=== PATIENT | female | born 2000 | race African-American/Black ===

== ENCOUNTER 2021-03-04 05:45 | Inpatient (IN) ==
[2021-03-04] MEDS ORDERED: ACETAMINOPHEN 500 MG TAB PO STA (05:59)
[2021-03-04] MEDS ORDERED: SODIUM CHLORIDE 0.9% 1000ML 1,000 ML IV STA (06:00)
[2021-03-04] MEDS ORDERED: ONDANSETRON INJ 2 MG/ML 2 ML VIAL IV STA (06:00)
[2021-03-04] MEDS ORDERED: cefTRIAXone SODIUM 1,000 MG/50 ML BAG IV STA (06:19)
[2021-03-04 06:45] LABS: Basophils # (auto) 0.01 K/uL (0-0.2); Basophils % (auto) 0.1 %; Eosinophils # (auto) 0.02 K/uL (0-0.5); Eosinophils % (auto) 0.2 %; Hematocrit (blood only) 28.4 % (37-47); Hemoglobin 9.1 g/dL (12.0-16.0); Immature Granulocytes # (auto) 0.06 K/uL (0.00-0.02); Immature Granulocytes % (auto) 0.5 %; Lymphocytes # (auto) 0.27 K/uL (1.2-3.4); Mean Corpuscular Hemoglobin 25.6 pg (25-34); Mean Platelet Volume 8.2 fL (7.4-10.4); Monocytes # (auto) 0.27 K/uL (0.11-0.59); Neutrophils # (auto) 12.64 K/uL (1.4-6.5); Neutrophils % (auto) 95.2 %; Platelet Count 512 K/uL (130-400); RDW Coefficient of Variation 16.8 % (11.5-14.5); RDW Standard Deviation 48.9 fL (36.4-46.3); Red Blood Count 3.55 M/uL (4.2-5.4); White Blood Count 13.27 K/uL (4.8-10.8)
[2021-03-04 07:03] LABS: BUN Creatinine Ratio 6.7 (10-20); Calcium 8.6 mg/dl (8.5-10.1); Creatinine Clr Calc Pharmacy 98.3 ml/min; Est GFR (African American) 133.9 ml/min; Est GFR (Non-African American) 115.6 ml/min; Potassium 3.1 mmol/L (3.5-5.1)
[2021-03-04 07:06] LABS: Albumin Globulin Ratio 0.7 (0.9-2); Bilirubin,Total 0.4 mg/dl (0.2-1); Globulin 4.5 gm/dl (2.5-4.0); Total Protein 7.5 gm/dl (6.4-8.2)
[2021-03-04 07:40] LABS: Appearance Urine Clear (Clear); Bacteria Urine Automated Negative (Negative); Bilirubin Urine Negative (Negative); Blood Urine Negative (Negative); Color Urine Yellow; Glucose Urine UA Negative (Negative); Ketones Urine Negative (Negative); Leukocyte Esterase Urine Trace (Negative); Nitrite Urine Negative (Negative); Protein Urine Negative (Negative); RBC Urine Automated 0-4 /hpf (0-4); Specific Gravity Urine 1.004 (1.000-1.030); Urobilinogen Urine Negative (Negative); pH Urine 7.5 (4.5-7.5)
[2021-03-04] MEDS: SODIUM CHLORIDE 0.9% 1000ML 1,000 ML IV SCH ×2 (07:40→13:33)
[2021-03-04 07:48] LABS: Pregnancy Test, Urine Negative (Negative)
[2021-03-04] MEDS ORDERED: OPTIRAY 320 100ml IV ONE (08:34)
--- NOTE | 2021-03-04 09:13 | CT Scan Report ---
CT SCAN OF THE ABDOMEN AND PELVIS WITH IV CONTRAST CLINICAL HISTORY: Urinary tract infection. Pyelonephritis. Flank pain. Dysuria. COMPARISON STUDY: No priors. TECHNIQUE: Following the IV administration of 94 cc of Optiray 320, CT scan of the abdomen and pelvi s is performed from the lung bases to the proximal femora. Images are reviewed in the axial, sagittal , and coronal planes. IV contrast was administered without complication. A dose lowering technique wa s utilized adhering to the principles of ALARA. There is streak artifact from a metallic naval pierci ng. CT DOSE: 266.52 mGy.cm FINDINGS: Lung bases: The heart is normal in size and without pericardial effusion. The lung bases are clear. Liver: The contrast-enhanced liver is normal in size, contour, and attenuation. There is no intrahepa tic biliary ductal dilatation. The hepatic veins and portal veins are patent. Gallbladder: Unremarkable. Spleen: Normal in size and attenuation. Pancreas: Unremarkable. Adrenal glands: Unremarkable. Kidneys: The contrast enhanced kidneys are normal in size and without hydronephrosis. Mild urothelial thickening and enhancement is seen involving the left ureter. There is a striated nephrogram on the left. The right kidney enhances homogeneously. There is a 13 mm indeterminant low-attenuation focus i n the anterior interpolar left kidney seen on image #127 with surrounding edema. Abdominal vasculature: The abdominal aorta is normal in course and caliber. Bowel: There is no bowel obstruction. Moderate fecal retention is seen throughout the colon. The appe ndix is well-visualized and normal. Peritoneum: There is no intraperitoneal free air or abdominal ascites. There is a small fat-containin g umbilical hernia. A naval piercing is in place. Lymphadenopathy: None. Pelvic viscera: The bladder is distended and appears mildly thick-walled. The uterus and adnexa are n ormal as visualized noting bilateral ovarian follicles. A small volume of free fluid is seen in the c ul-de-sac. Skeletal structures: No lytic or blastic lesions are seen. IMPRESSION: 1. Findings are compatible with cystitis and ascending urinary tract infection/polynephritis of the l eft kidney. 2. There is a 13 mm indeterminant cortical hypodensity with surrounding edema in the anterior interpo lar left kidney which does not meet criteria for a simple cyst. This likely represents a small absces s. 3. A small volume of free fluid in the cul-de-sac is nonspecific. ACT 112: Negative or not required by law. Electronically signed by: Abdiel Murphy M.D. 03/04/2021 9:12 AM
[2021-03-04] MEDS ORDERED: POTASSIUM CHLORIDE CRTAB 20 MEQ TABCR PO STA (10:46)
--- NOTE | 2021-03-04 10:46 | History & Physical Report ---
Date of Service March 04, 2021 Assessment & Plan (1) Pyelonephritis: Plan: This point patient will be continued on ceftriaxone 1 g IV every 12 hours Check procalcitonin in the morning Urinalysis with urinary tract infection. Urine culture is pending Records reviewed from [facility]. Urinalysis was positive. Urine culture with no growth. We will also treat with lactated Ringer's at 125 mL an hour Follow ins and outs Acetaminophen for fever and pain (2) Abscess of left kidney: Plan: Small at 1.3 cm. - Treat underlying pyelonephritis - Follow vital signs and electrolytes (3) Hypokalemia: Plan: Potassium chloride 40 mEq p.o. Check magnesium level Check repeat labs in the morning (4) DVT prophylaxis: Plan: Heparin 5000 units subcutaneously every 12 hours Ambulate as tolerated History of Present Illness Chief Complaint: Urinary tract infection/pyelonephritis Primary Care Provider: [facility] Attending: Dr. Gonzalo Stahl Is a 20-year-old female with no significant past medical history other than occasional urinary tract infection. She is on oral control and no other prescription medications. 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 She reports that recently she had a urinary tract infection was treated with Macrobid. Records were rev iewed from [facility] and show a positive urinalysis but no positive cultures. By report, the patient states that her physician called and wanted to change her antibiotics. The patient was feeling better and stated that she did not think it was necessary. She moved in and over the last 24 hours began to have increasing fever and some left-sided pain. She presented to the emergency department at [facility]. CT scan of the abdomen pelvis was completed and shows cystitis and ascending urinary tract infection polynephritis of the left kidney. Is noted there is a 13 mm indeterminate cortical hypodensity with surrounding edema in the anterior interpolar left kidney which may be criteria for simple cyst. It could also be a small abscess. There is also a small amount of free fluid in the cul-de-sac which is nonspecific. T-max in the emergency department 39.4 C. This came down nicely with Tylenol. At the time of my examination the patient has no further nausea or vomiting. She has no diarrhea. She has minimal pain on the left side. She does have positive CVA tenderness. The patient denies any other past medical history is significant. She did have bunion surgery on her left foot without complication in the past. She is on oral control. She has no other surgical history. She has no reported pregnancies. She has no other acute complaints. The patient has not had Covid. She reports being fully vaccinated with both vaccinations of Moderna. She denies any illicit use of alcohol or other substances. Allergies Allergy/AdvReac Type Severity Reaction Status Date / Time No Known Allergies Allergy Verified 03/04/21 10:13 Home Medications Medication Instructions Recorded Confirmed Type acetaminophen 500 mg tablet 1,000 mg PO Q8H PRN 04/23/20 03/04/21 History (Tylenol Extra Strength) drospirenone 3 mg-ethinyl 1 tab PO PM 03/04/21 03/04/21 History estradiol 0.02 mg tablet (KP (28)) ibuprofen 200 mg tablet (Motrin IB) 600 mg PO Q6H PRN 03/04/21 03/04/21 History iron,carbonyl 65 mg-vitamin C 125 1 tab PO PM 03/04/21 03/04/21 History mg tablet,delayed release (Vitron-C) Past Med/Surg History Medical History No acute medical problems Surgical History No pertinent past surgical history Social History Smoking Status: Never smoker Feels Safe at Home: Yes Review of Systems Review of Systems: All systems reviewed & are unremarkable except as noted in Subjective Physical Exam Physical Exam: GENERAL : No acute distress EYES: No icterus, gaze conjugate NOSE: No evidence of epistaxis MOUTH: No lesions or candidiasis NECK: Supple LUNGS: CTA B/L, no wheezes, rales or rhonchi BACK: Positive for left-sided CVA tenderness HEART: Regular, rate controlled ABDOMEN: Soft, NT, ND, BS Present EXTREMITIES: No LE edema, pedal pulses intact NEURO: A&OX3 Results & Data Results & Data ([facility]) Vital Signs (Past 12 Hours) Vital Signs Temp Pulse Resp BP Pulse Ox 03/04/21 10:00 98 H 20 107/69 98 03/04/21 09:30 108 H 26 H 100/64 99 03/04/21 09:04 111 H 25 H 99/60 L 100 03/04/21 08:30 107 H 22 122/70 99 03/04/21 08:26 37.1 C 03/04/21 08:00 112 H 20 106/71 99 03/04/21 07:30 126 H 32 H 119/79 100 03/04/21 07:00 115 H 27 H 113/66 99 03/04/21 06:38 120 H 20 120/78 100 03/04/21 06:33 100 03/04/21 05:52 39.4 C H 149 H 16 123/71 98 Laboratory Results 03/04/21 06:32 03/04/21 06:32 Diagnostic Findings Abdomen/Pelvis CT 03/04/21 08:25 CT SCAN OF THE ABDOMEN AND PELVIS WITH IV CONTRAST CLINICAL HISTORY: Urinary tract infection. Pyelonephritis. Flank pain. Dysuria. COMPARISON STUDY: No priors. TECHNIQUE: Following the IV administration of 94 cc of Optiray 320, CT scan of the abdomen and pelvis is performed from the lung bases to the proximal femora. Images are reviewed in the axial, sagittal, and coronal planes. IV contrast was administered without complication. A dose lowering technique was utilized adhering to the principles of ALARA. There is streak artifact from a metallic naval piercing. CT DOSE: 266.52 mGy.cm FINDINGS: Lung bases: The heart is normal in size and without pericardial effusion. The lung bases are clear. Liver: The contrast-enhanced liver is normal in size, contour, and attenuation. There is no intrahepatic biliary ductal dilatation. The hepatic veins and portal veins are patent. Gallbladder: Unremarkable. Spleen: Normal in size and attenuation. Pancreas: Unremarkable. Adrenal glands: Unremarkable. Kidneys: The contrast enhanced kidneys are normal in size and without hydronephrosis. Mild urothelial thickening and enhancement is seen involving the left ureter. There is a striated nephrogram on the left. The right kidney enhances homogeneously. There is a 13 mm indeterminant low-attenuation focus in the anterior interpolar left kidney seen on image #127 with surrounding edema. Abdominal vasculature: The abdominal aorta is normal in course and caliber. Bowel: There is no bowel obstruction. Moderate fecal retention is seen throughout the colon. The appendix is well-visualized and normal. Peritoneum: There is no intraperitoneal free air or abdominal ascites. There is a small fat-containing umbilical hernia. A naval piercing is in place. Lymphadenopathy: None. Pelvic viscera: The bladder is distended and appears mildly thick-walled. The uterus and adnexa are normal as visualized noting bilateral ovarian follicles. A small volume of free fluid is seen in the cul-de-sac. Skeletal structures: No lytic or blastic lesions are seen. IMPRESSION: 1. Findings are compatible with cystitis and ascending urinary tract infection/polynephritis of the left kidney. 2. There is a 13 mm indeterminant cortical hypodensity with surrounding edema in the anterior interpolar left kidney which does not meet criteria for a simple cyst. This likely represents a small abscess. 3. A small volume of free fluid in the cul-de-sac is nonspecific. ACT 112: Negative or not required by law. Electronically signed by: Abdiel Murphy M.D. 03/04/2021 9:12 AM Medications Administered Current Inpatient Medications Sodium Chloride (Nss 1000ml) 1,000 mls @ 150 mls/hr IV .Q6H40M YOSEPH Stop: 04/03/21 06:29 Last Admin: 03/04/21 07:40 Dose: 150 mls/hr Documented by: Code Status & VTE Plan Code Status Full resuscitation: Level I VTE Prophylaxis Plan VTE Prophylaxis will be ordered: Yes Supervising Physician Co-Signing Physician Notes I supervised Abdiel Bridges PA-C on this admission. I interviewed and examined the patient independently of him. The plan is as written in his note except for any following changes/exceptions: None 20y pleasant F w/ no major PMH who presents after undertreated UTI (with Macrobid) has become L. sided pyelonephritis with small renal abscess. Urine culture unfortunately was negative at PCP office, and our urine culture was drawn after her outpatient Macrobid and ceftriaxone in the ED. - Follow blood cultures (at least one drawn prior to abx administration) - Continue ceftriaxone - Transition to cefdinir or ciprofloxacin on discharge likely; defer to tomorrow provider PG Care Time/CCT Total # of Minutes Spent Total Time Spent with Patient: Total time spent is greater than 50% in coordination of care (as documented) at patient's floor/unit and/or counseling patient: 50 minutes including discussion with patient's mother by telephone Coding Level of Care Code 89127 Initial Inpt Care Lvl 2 Diagnoses Pyelonephritis N12 Abscess of left kidney N15.1 DVT prophylaxis Z29.9 Hypokalemia E87.6 Time Spent (min) 45
--- NOTE | 2021-03-04 13:56 | Emergency Department Note ---
History of Present Illness General Chief complaint: Illness Stated complaint: VOMITING,FLANK PAIN,FEEBLENESS,FEVER,HEADACHE Time Seen by Provider: 03/04/21 06:10 Source: patient and EMS Mode of arrival: ambulatory Limitations: no limitations History of Present Illness Provider complaint: Fever, headache, flank pain, urinary burning Maximum Pain Intensity: 2 This patient is a 20-year-old female who presents to the emergency department with complaints of flank pain, urinary burning and fever. Patient states she has had urinary symptoms for the last 10 days. She completed a course of Mac robid prior to coming to school. She states her treatment was at [facility]. She was told by her physician that she should change antibiotics but she states she declined. She states her symptoms did improve but within a few days of completing the course of antibiotics the symptoms returned. She noted a fever overnight for the last 2 days. Patient did take [id number] pain relievers but not since yesterday. Home Medications Medication Instructions Recorded Confirmed Type acetaminophen 500 mg tablet 1,000 mg PO Q8H PRN 04/23/20 03/04/21 History (Tylenol Extra Strength) drospirenone 3 mg-ethinyl 1 tab PO PM 03/04/21 03/04/21 History estradiol 0.02 mg tablet (KP (28)) ibuprofen 200 mg tablet (Motrin IB) 600 mg PO Q6H PRN 03/04/21 03/04/21 History iron,carbonyl 65 mg-vitamin C 125 1 tab PO PM 03/04/21 03/04/21 History mg tablet,delayed release (Vitron-C) Allergies Allergy/AdvReac Type Severity Reaction Status Date / Time No Known Allergies Allergy Verified 03/04/21 10:13 Past Med/Surg History Medical History Anemia Avascular necrosis of bones of both hips Hypokalemia No acute medical problems Surgical History No pertinent past surgical history Social History Smoking Status: Never smoker Second Hand Exposure: No; Do You Dip or Chew Tobacco: No; Tobacco Cessation Education Requested by Patient: No Hx Alcohol Use: Yes Hx Substance Use: No Preferred Language: Macanese Communication Ability: Effective 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 and A total of 10 systems reviewed and were otherwise negative Physical Exam Vital Signs Vital Signs - 24 hr 03/04/21 05:52 03/04/21 06:33 03/04/21 06:38 Temperature 39.4 C H Temperature Source Oral Pulse Rate 149 H 120 H Pulse Rate from SpO2 Sensor 120 H Respiratory Rate 16 20 Respiratory Effort / Characteristics Non-Labored Spontaneous Respiratory Depth Normal Blood Pressure 123/71 120/78 Blood Pressure Mean 88 92 Pulse Oximetry 98 100 100 Oxygen Delivery Method Room Air Room Air Sepsis Recent Fever Within 48 Hours Yes Sepsis New/Unexplained Change in Mental Status Yes Sepsis Action Taken by Nursing No Action Required 03/04/21 07:00 03/04/21 07:30 03/04/21 08:00 Temperature Temperature Source Pulse Rate 115 H 126 H 112 H Pulse Rate from SpO2 Sensor 115 H 126 H 111 H Respiratory Rate 27 H 32 H 20 Respiratory Effort / Characteristics Respiratory Depth Blood Pressure 113/66 119/79 106/71 Blood Pressure Mean 81 92 82 Pulse Oximetry 99 100 99 Oxygen Delivery Method Sepsis Recent Fever Within 48 Hours Sepsis New/Unexplained Change in Mental Status Sepsis Action Taken by Nursing 03/04/21 08:26 03/04/21 08:30 03/04/21 09:04 Temperature 37.1 C Temperature Source Oral Pulse Rate 107 H 111 H Pulse Rate from SpO2 Sensor 109 H 111 H Respiratory Rate 22 25 H Respiratory Effort / Characteristics Respiratory Depth Blood Pressure 122/70 99/60 L Blood Pressure Mean 87 73 Pulse Oximetry 99 100 Oxygen Delivery Method Sepsis Recent Fever Within 48 Hours Sepsis New/Unexplained Change in Mental Status Sepsis Action Taken by Nursing 03/04/21 09:30 03/04/21 10:00 03/04/21 10:30 Temperature Temperature Source Pulse Rate 108 H 98 H 99 H Pulse Rate from SpO2 Sensor 108 H 96 H 100 H Respiratory Rate 26 H 20 26 H Respiratory Effort / Characteristics Respiratory Depth Blood Pressure 100/64 107/69 109/69 Blood Pressure Mean 76 81 82 Pulse Oximetry 99 98 99 Oxygen Delivery Method Sepsis Recent Fever Within 48 Hours Sepsis New/Unexplained Change in Mental Status Sepsis Action Taken by Nursing Vital signs reviewed. Noted to be tachycardic and febrile General: Well-appearing 20-year-old female, in some discomfort. HEENT: No scleral icterus, PERRLA, neck supple. Atraumatic. Cardiovascular: Regular rate and rhythm, no extra sounds. Pulmonary: Clear to auscultation bilaterally, normal work of breathing. Abdomen: Soft, nontender, nondistended, positive bowel sounds. Musculoskeletal: Atraumatic, no peripheral edema. Positive CVA tenderness bilaterally Neurologic: Patient awake alert and oriented x 3. Skin: Warm, dry, no rash Course Administered Medications Acetaminophen (Acetaminophen 500 Mg Tab) 1,000 mg PO Q8H PRN PRN Reason: FEVER/PAIN Stop: 04/03/21 12:58 Last Admin: 03/08/21 11:16 Dose: 1,000 mg Documented by: [id number] Admin: 03/06/21 20:26 Dose: 1,000 mg Documented by: [id number] Admin: 03/06/21 11:55 Dose: 1,000 mg Documented by: [id number] Admin: 03/06/21 04:00 Dose: 1,000 mg Documented by: [id number] Admin: 03/05/21 16:21 Dose: 1,000 mg Documented by: [id number] Admin: 03/05/21 07:41 Dose: 1,000 mg Documented by: [id number] Admin: 03/04/21 23:46 Dose: 1,000 mg Documented by: [id number] Admin: 03/04/21 14:38 Dose: 1,000 mg Documented by: [id number] Bisacodyl (Bisacodyl 5 Mg Tabec) 5 mg PO HS [facility] Stop: 04/07/21 20:59 Last Admin: 03/08/21 20:03 Dose: 5 mg Documented by: [id number] Clotrimazole (Clotrimazole Vaginal Cr 7 Appln/45 Gm Tube) 1 appln PV TID PRN PRN Reason: itching Stop: 03/12/21 08:59 Last Admin: 03/05/21 01:09 Dose: 1 appln Documented by: [id number] Ergocalciferol (Ergocalciferol 50,000 Units 1250 Mcg Cap) 50,000 units PO Q7D@0900 [facility] Stop: 04/07/21 10:14 Last Admin: 03/08/21 11:16 Dose: 50,000 units Documented by: [id number] Heparin Sodium (Porcine) (Heparin Sod 5,000 Unit/0.5 Ml Vial) 5,000 units SQ Q12 [facility] Stop: 04/03/21 20:59 Last Admin: 03/08/21 20:03 Dose: 5,000 units Documented by: [id number] Admin: 03/08/21 08:24 Dose: 5,000 units Documented by: [id number] Admin: 03/07/21 21:02 Dose: 5,000 units Documented by: [id number] Admin: 03/07/21 08:15 Dose: 5,000 units Documented by: [id number] Admin: 03/06/21 20:26 Dose: 5,000 units Documented by: [id number] Admin: 03/06/21 07:57 Dose: 5,000 units Documented by: [id number] Admin: 03/05/21 21:26 Dose: 5,000 units Documented by: [id number] Admin: 03/05/21 10:13 Dose: 5,000 units Documented by: [id number] Admin: 03/04/21 20:23 Dose: 5,000 units Documented by: [id number] Lactated Ringer's (Lr) 1,000 mls @ 75 mls/hr IV .[id number] [facility] Stop: 04/03/21 12:50 Last Admin: 03/09/21 01:57 Dose: 75 mls/hr Documented by: [id number] Infusion: 03/09/21 01:57 Dose: 75 mls/hr Documented by: [id number] Admin: 03/08/21 13:06 Dose: 75 mls/hr Documented by: [id number] Infusion: 03/08/21 11:12 Dose: 75 mls/hr Documented by: [id number] Infusion: 03/08/21 06:10 Dose: 75 mls/hr Documented by: [id number] Infusion: 03/07/21 22:15 Dose: 75 mls/hr Documented by: [id number] Infusion: 03/07/21 19:00 Dose: 0 mls/hr Documented by: [id number] Admin: 03/07/21 18:37 Dose: 75 mls/hr Documented by: [id number] Infusion: 03/07/21 18:19 Dose: 75 mls/hr Documented by: [id number] Admin: 03/07/21 08:19 Dose: 100 mls/hr Documented by: [id number] Infusion: 03/07/21 08:11 Dose: 100 mls/hr Documented by: [id number] Infusion: 03/07/21 06:17 Dose: 100 mls/hr Documented by: [id number] Admin: 03/06/21 22:11 Dose: 100 mls/hr Documented by: [id number] Infusion: 03/06/21 22:11 Dose: 100 mls/hr Documented by: [id number] Infusion: 03/06/21 22:08 Dose: 100 mls/hr Documented by: [id number] Infusion: 03/06/21 20:20 Dose: 0 mls/hr Documented by: [id number] Infusion: 03/06/21 20:20 Dose: 100 mls/hr Documented by: [id number] Admin: 03/06/21 13:07 Dose: 125 mls/hr Documented by: [id number] Infusion: 03/06/21 13:07 Dose: 125 mls/hr Documented by: [id number] Infusion: 03/06/21 08:36 Dose: 125 mls/hr Documented by: [id number] Infusion: 03/06/21 08:01 Dose: 0 mls/hr Documented by: [id number] Admin: 03/06/21 07:55 Dose: 125 mls/hr Documented by: [id number] Infusion: 03/06/21 07:18 Dose: 125 mls/hr Documented by: [id number] Infusion: 03/06/21 03:54 Dose: 125 mls/hr Documented by: [id number] Infusion: 03/06/21 01:55 Dose: 0 mls/hr Documented by: [id number] Admin: 03/05/21 21:19 Dose: 125 mls/hr Documented by: [id number] Infusion: 03/05/21 21:06 Dose: 125 mls/hr Documented by: [id number] Admin: 03/05/21 13:06 Dose: 125 mls/hr Documented by: [id number] Infusion: 03/05/21 13:06 Dose: 125 mls/hr Documented by: [id number] Admin: 03/05/21 05:20 Dose: 125 mls/hr Documented by: [id number] Infusion: 03/05/21 05:20 Dose: 125 mls/hr Documented by: [id number] Admin: 03/04/21 21:58 Dose: 125 mls/hr Documented by: [id number] Infusion: 03/04/21 21:58 Dose: 125 mls/hr Documented by: [id number] Admin: 03/04/21 15:27 Dose: 125 mls/hr Documented by: [id number] Promethazine HCl 6.25 mg/ (Sodium Chloride) 50.25 mls @ 201 mls/hr IV Q6H PRN PRN Reason: Nausea And Vomiting Stop: 04/06/21 16:03 Last Infusion: 03/08/21 20:15 Dose: 0 mls/hr Documented by: [id number] Admin: 03/08/21 19:59 Dose: 201 mls/hr Documented by: [id number] Ertapenem 1,000 mg/ Sodium (Chloride) 60 mls @ 100 mls/hr IV Q24H [facility] Stop: 03/18/21 19:59 Last Infusion: 03/08/21 21:10 Dose: 0 mls/hr Documented by: [id number] Admin: 03/08/21 20:31 Dose: 100 mls/hr Documented by: [id number] Miscellaneous (Patient's Own Oral Contraceptive) 1 ea PO Q24H [facility] Stop: 04/04/21 20:59 Last Admin: 03/08/21 20:03 Dose: 1 ea Documented by: [id number] Admin: 03/07/21 21:01 Dose: 1 ea Documented by: [id number] Admin: 03/06/21 20:26 Dose: 1 ea Documented by: [id number] Admin: 03/05/21 22:00 Dose: 1 ea Documented by: [id number] Multivitamins/Minerals (Cerovite Adv Formula Tab) 1 tab PO PM [facility] Stop: 04/03/21 20:59 Last Admin: 03/07/21 21:01 Dose: 1 tab Documented by: [id number] Admin: 03/06/21 20:26 Dose: 1 tab Documented by: [id number] Admin: 03/05/21 21:26 Dose: 1 tab Documented by: [id number] Admin: 03/04/21 20:23 Dose: 1 tab Documented by: [id number] Ondansetron HCl (Ondansetron Inj 2 Mg/Ml 2 Ml Vial) 4 mg IV Q4H PRN PRN Reason: Nausea Stop: 04/03/21 20:34 Last Admin: 03/08/21 13:52 Dose: 4 mg Documented by: [id number] Admin: 03/07/21 11:58 Dose: 4 mg Documented by: [id number] Admin: 03/05/21 07:47 Dose: 4 mg Documented by: [id number] Admin: 03/04/21 21:25 Dose: 4 mg Documented by: [id number] Pantoprazole Sodium (Pantoprazole 40 Mg Tab) 40 mg PO BID [facility] Stop: 04/06/21 10:44 Last Admin: 03/08/21 20:03 Dose: 40 mg Documented by: [id number] Admin: 03/08/21 08:25 Dose: 40 mg Documented by: [id number] Admin: 03/07/21 21:01 Dose: 40 mg Documented by: [id number] Admin: 03/07/21 11:00 Dose: 40 mg Documented by: [id number] Senna/Docusate Sodium (Docusate Sodium/Senna 50/8.6mg Tab) 1 tab PO QAM [facility] Stop: 04/05/21 08:59 Last Admin: 03/08/21 08:26 Dose: 1 tab Documented by: [id number] Admin: 03/07/21 08:15 Dose: 1 tab Documented by: [id number] Admin: 03/06/21 07:57 Dose: 1 tab Documented by: [id number] Sucralfate (Sucralfate 1 Gm/10 Ml Udc) 1 gm PO ACHS [facility] Stop: 04/06/21 16:29 Last Admin: 03/08/21 18:07 Dose: Not Given Documented by: [id number] Admin: 03/08/21 11:17 Dose: 1 gm Documented by: [id number] Admin: 03/08/21 08:22 Dose: 1 gm Documented by: [id number] Admin: 03/07/21 21:01 Dose: 1 gm Documented by: [id number] Admin: 03/07/21 17:34 Dose: 1 gm Documented by: [id number] Discontinued Medications Acetaminophen (Acetaminophen 500 Mg Tab) 1,000 mg PO NOW STA Stop: 03/04/21 06:00 Last Admin: 03/04/21 06:35 Dose: 1,000 mg Documented by: [id number] Bisacodyl (Bisacodyl 5 Mg Tabec) 5 mg PO NOW ONE Stop: 03/05/21 19:55 Last Admin: 03/05/21 21:25 Dose: 5 mg Documented by: [id number] Diphenhydramine HCl (Diphenhydramine 50 Mg/Ml Vial) 12.5 mg IV NOW STA Stop: 03/08/21 14:08 Last Admin: 03/08/21 14:16 Dose: 12.5 mg Documented by: [id number] Ferrous Sulfate (Ferrous Sulfate 325 Mg Tab) 325 mg PO ONE ONE Stop: 03/05/21 19:01 Last Admin: 03/05/21 21:25 Dose: 325 mg Documented by: [id number] Hydromorphone HCl (Hydromorphone Inj 0.5 Mg/0.5 Ml Syr) 0.25 mg IV NOW STA Stop: 03/08/21 14:19 Last Admin: 03/08/21 14:47 Dose: 0.25 mg Documented by: [id number] Sodium Chloride (Nss 1000ml) 1,000 mls @ 999 mls/hr IV .Q1H1M STA Stop: 03/04/21 07:00 Last Infusion: 03/04/21 10:51 Dose: 0 mls/hr Documented by: [id number] Admin: 03/04/21 06:35 Dose: 999 mls/hr Documented by: [id number] Sodium Chloride (Nss 1000ml) 1,000 mls @ 150 mls/hr IV .Q6H40M [facility] Stop: 04/03/21 06:29 Last Admin: 03/04/21 13:33 Dose: Not Given Documented by: [id number] Infusion: 03/04/21 13:33 Dose: 0 mls/hr Documented by: [id number] Admin: 03/04/21 07:40 Dose: 150 mls/hr Documented by: [id number] Ceftriaxone Sodium (Rocephin) 1,000 mg in 50 mls @ 100 mls/hr IV NOW STA Stop: 03/04/21 06:48 Last Infusion: 03/04/21 07:58 Dose: 0 mls/hr Documented by: [id number] Admin: 03/04/21 07:28 Dose: 100 mls/hr Documented by: [id number] Ceftriaxone Sodium 1,000 mg/ (Dextrose) 50 mls @ 100 mls/hr IV DAILY@0800 [facility]; Protocol Stop: 03/14/21 07:59 Last Infusion: 03/07/21 08:54 Dose: 0 mls/hr Documented by: [id number] Admin: 03/07/21 08:14 Dose: 100 mls/hr Documented by: [id number] Infusion: 03/06/21 08:37 Dose: 0 mls/hr Documented by: [id number] Admin: 03/06/21 07:56 Dose: 100 mls/hr Documented by: [id number] Infusion: 03/05/21 10:18 Dose: 0 mls/hr Documented by: [id number] Admin: 03/05/21 07:47 Dose: 100 mls/hr Documented by: [id number] Iron Sucrose 300 mg/ Sodium (Chloride) 265 mls @ 176.667 mls/hr IV ONE ONE Stop: 03/05/21 22:59 Last Infusion: 03/06/21 03:54 Dose: 0 mls/hr Documented by: [id number] Admin: 03/06/21 01:55 Dose: 177 mls/hr Documented by: [id number] Iron Sucrose 300 mg/ Sodium (Chloride) 265 mls @ 176.667 mls/hr IV TODAY ONE Stop: 03/06/21 22:29 Last Infusion: 03/06/21 22:08 Dose: 0 mls/hr Documented by: [id number] Admin: 03/06/21 20:26 Dose: 176.7 mls/hr Documented by: [id number] Famotidine 20 mg/ Syringe 5 mls @ 2.5 mls/min IV DAILY [facility] Stop: 04/05/21 14:59 Last Admin: 03/07/21 08:26 Dose: 2.5 mls/min Documented by: [id number] Admin: 03/06/21 15:50 Dose: 2.5 mls/min Documented by: [id number] Iron Sucrose 300 mg/ Sodium (Chloride) 265 mls @ 176.667 mls/hr IV TODAY@2000 ONE Stop: 03/07/21 21:29 Last Infusion: 03/07/21 22:15 Dose: 0 mls/hr Documented by: [id number] Infusion: 03/07/21 21:00 Dose: 176.7 mls/hr Documented by: [id number] Infusion: 03/07/21 20:14 Dose: 0 mls/hr Documented by: [id number] Admin: 03/07/21 19:51 Dose: 176.7 mls/hr Documented by: [id number] Ciprofloxacin (Cipro / D5w) 400 mg in 200 mls @ 100 mls/hr IV Q12H [facility]; Protocol Stop: 03/18/21 00:59 Last Infusion: 03/08/21 03:46 Dose: 0 mls/hr Documented by: [id number] Admin: 03/08/21 01:33 Dose: 100 mls/hr Documented by: [id number] Ertapenem 1,000 mg/ Sodium (Chloride) 60 mls @ 100 mls/hr IV Q24H [facility] Stop: 03/18/21 12:59 Last Infusion: 03/08/21 13:57 Dose: 0 mls/hr Documented by: [id number] Admin: 03/08/21 13:06 Dose: 100 mls/hr Documented by: [id number] Magnesium Sulfate/Dextrose (Magnesium Sulfate / D5w) 1 gm in 100 mls @ 50 mls/hr IV ONE ONE Stop: 03/08/21 19:59 Last Infusion: 03/08/21 20:16 Dose: 0 mls/hr Documented by: [id number] Admin: 03/08/21 18:06 Dose: 50 mls/hr Documented by: [id number] Ioversol (Optiray 320 100ml) 94 ml IV ONCE ONE Stop: 03/04/21 08:35 Last Admin: 03/04/21 08:34 Dose: 94 ml Documented by: [id number] Ioversol (Optiray 320 100ml) 94 ml IV ONCE ONE Stop: 03/07/21 18:48 Last Admin: 03/07/21 21:08 Dose: Not Given Documented by: [id number] Ketorolac Tromethamine (Ketorolac Tromethamine 15 Mg/Ml Vial) 15 mg IV NOW ONE Stop: 03/04/21 18:28 Last Admin: 03/04/21 18:34 Dose: 15 mg Documented by: [id number] Ketorolac Tromethamine (Ketorolac Tromethamine 15 Mg/Ml Vial) 15 mg IV Q6H PRN PRN Reason: Pain Stop: 03/09/21 20:34 Last Admin: 03/05/21 15:03 Dose: 15 mg Documented by: [id number] Admin: 03/05/21 07:38 Dose: 15 mg Documented by: [id number] Admin: 03/04/21 21:25 Dose: 15 mg Documented by: [id number] Lactobacillus Acidophilus (Lactobacillus Acidophilus 1 Gm Pack) 1 gm PO TIDM [facility] Stop: 04/03/21 12:50 Last Admin: 03/08/21 17:28 Dose: Not Given Documented by: [id number] Admin: 03/08/21 11:17 Dose: 1 gm Documented by: [id number] Admin: 03/08/21 08:24 Dose: 1 gm Documented by: [id number] Admin: 03/07/21 17:31 Dose: 1 gm Documented by: [id number] Admin: 03/07/21 12:06 Dose: Not Given Documented by: [id number] Admin: 03/07/21 08:13 Dose: 1 gm Documented by: [id number] Admin: 03/06/21 18:15 Dose: Not Given Documented by: [id number] Admin: 03/06/21 11:52 Dose: 1 gm Documented by: [id number] Admin: 03/06/21 07:56 Dose: 1 gm Documented by: [id number] Admin: 03/05/21 16:21 Dose: 1 gm Documented by: [id number] Admin: 03/05/21 13:06 Dose: 1 gm Documented by: [id number] Admin: 03/05/21 07:38 Dose: 1 gm Documented by: [id number] Admin: 03/04/21 18:35 Dose: 1 gm Documented by: [id number] Admin: 03/04/21 15:27 Dose: 1 gm Documented by: [id number] Magnesium Citrate (Magnesium Citrate 296 Ml/Btl) 148 ml PO ONE ONE Stop: 03/06/21 14:29 Last Admin: 03/06/21 15:49 Dose: 148 ml Documented by: [id number] Miscellaneous (Oral Contraceptive Tablets~Order Awaiting Action) 1 ea N/A QS [facility] Stop: 04/03/21 15:59 Last Admin: 03/04/21 23:44 Dose: Not Given Documented by: [id number] Admin: 03/04/21 17:16 Dose: Not Given Documented by: [id number] Miscellaneous (Patient's Own Oral Contraceptive) 1 ea PO DAILY [facility] Stop: 04/04/21 08:59 Last Admin: 03/05/21 10:13 Dose: 1 ea Documented by: [id number] Ondansetron HCl (Ondansetron Inj 2 Mg/Ml 2 Ml Vial) 4 mg IV NOW STA Stop: 03/04/21 06:01 Last Admin: 03/04/21 06:35 Dose: 4 mg Documented by: [id number] Ondansetron HCl (Ondansetron Inj 2 Mg/Ml 2 Ml Vial) 4 mg IV NOW STA Stop: 03/06/21 18:09 Last Admin: 03/06/21 18:15 Dose: 4 mg Documented by: [id number] Oxycodone/Acetaminophen (Oxycodone/Acetaminophen 5mg/325mg Tab) 1 tab PO Q4H PRN PRN Reason: Pain Stop: 03/20/21 14:27 Last Admin: 03/07/21 08:25 Dose: 1 tab Documented by: [id number] Polyethylene Glycol (Polyethylene (Miralax) 17 Gm Pack) 17 gm PO DAILY [facility] Stop: 04/05/21 08:59 Last Admin: 03/08/21 08:22 Dose: 17 gm Documented by: [id number] Admin: 03/07/21 08:15 Dose: Not Given Documented by: [id number] Admin: 03/06/21 07:57 Dose: 17 gm Documented by: [id number] Potassium Chloride (Potassium Chloride Crtab 20 Meq Tabcr) 40 meq PO NOW STA Stop: 03/04/21 10:47 Last Admin: 03/04/21 10:53 Dose: 40 meq Documented by: [id number] Tramadol HCl (Tramadol Hcl 50 Mg Tablet) 50 mg PO Q4H PRN PRN Reason: Pain Stop: 04/06/21 16:03 Last Admin: 03/08/21 08:22 Dose: 50 mg Documented by: [id number] Admin: 03/07/21 21:04 Dose: 50 mg Documented by: [id number] Medical Decision Making Differential Diagnosis Viral syndrome, otitis, pharyngitis, pneumonia, influenza, meningitis, urinary tract infection, sepsis, bacteremia, as well as other pathologies. Medical Records Attestation: I reviewed the patient's medical records. Home Medications Current Medication List: was personally reviewed by me Laboratory Data Attestation: I reviewed the patient's lab results. Result diagrams: 03/08/21 08:30 03/08/21 08:30 Lab Results 03/04/21 03/04/21 03/04/21 Range/Units 06:32 06:32 06:32 WBC 13.27 H (4.8-10.8) K/uL RBC 3.55 L (4.2-5.4) M/uL Hgb 9.1 L (12.0-16.0) g/dL Hct 28.4 L (37-47) % MCV 80.0 (80-100) fL MCH 25.6 (25-34) pg MCHC 32.0 (32-36) g/dL RDW Std Deviation 48.9 H (36.4-46.3) fL RDW Coeff of Zeus 16.8 H (11.5-14.5) % Plt Count 512 H (130-400) K/uL MPV 8.2 (7.4-10.4) fL Immature Gran % (Auto) 0.5 % Neut % (Auto) 95.2 % Lymph % (Auto) 2.0 % [place] % (Auto) 2.0 % Eos % (Auto) 0.2 % Baso % (Auto) 0.1 % Neut # (Auto) 12.64 H (1.4-6.5) K/uL Lymph # (Auto) 0.27 L (1.2-3.4) K/uL [place] # (Auto) 0.27 (0.11-0.59) K/uL Eos # (Auto) 0.02 (0-0.5) K/uL Baso # (Auto) 0.01 (0-0.2) K/uL Immature Gran # (Auto) 0.06 H (0.00-0.02) K/uL Sodium 137 (136-145) mmol/L Potassium 3.1 L (3.5-5.1) mmol/L Chloride 106 (98-107) mmol/L Carbon Dioxide 21 (21-32) mmol/L Anion Gap 10.0 (3-11) BUN 5 L (7-18) mg/dl Creatinine 0.75 (0.6-1.2) mg/dl Est Cr Clr Drug Dosing 98.3 ml/min Est GFR ( Amer) 133.9 ml/min Est GFR (Non-Af Amer) 115.6 ml/min BUN/Creatinine Ratio 6.7 L (10-20) Glucose 102 H (70-99) mg/dl Lactate 1.2 (0.4-2.0) mmol/L Calcium 8.6 (8.5-10.1) mg/dl Magnesium (1.8-2.4) mg/dl Iron (35-150) mcg/dl TIBC (250-450) mcg/dl Transferrin (200-360) mg/dl Transferrin % Sat (15-50) % Ferritin (8-388) ng/ml Total Bilirubin 0.4 (0.2-1) mg/dl AST 11 L (15-37) U/L ALT 10 L (12-78) U/L Alkaline Phosphatase 74 (45-117) U/L Total Protein 7.5 (6.4-8.2) gm/dl Albumin 3.0 L (3.4-5.0) gm/dl Globulin 4.5 H (2.5-4.0) gm/dl Albumin/Globulin Ratio 0.7 L (0.9-2) Procalcitonin (0-0.5) ng/ml Urine Color Urine Appearance (Clear) Urine pH (4.5-7.5) Ur Specific [place] (1.000-1.030) Urine Protein (Negative) Urine Glucose (UA) (Negative) Urine Ketones (Negative) Urine Blood (Negative) Urine Nitrite (Negative) Urine Bilirubin (Negative) Urine Urobilinogen (Negative) Ur Leukocyte Esterase (Negative) Urine WBC (Auto) (0-5) /hpf Urine RBC (Auto) (0-4) /hpf U Hyaline Cast (Auto) (0-5) /lpf U Epithel Cells (Auto) (0-5) /lpf Urine Bacteria (Auto) (Negative) Urine Test (Negative) COVID-19 Eval Order SARS-CoV-2 (PCR) (Negative) 03/04/21 03/04/21 03/04/21 Range/Units 06:33 06:33 06:35 WBC (4.8-10.8) K/uL RBC (4.2-5.4) M/uL Hgb (12.0-16.0) g/dL Hct (37-47) % MCV (80-100) fL MCH (25-34) pg MCHC (32-36) g/dL RDW Std Deviation (36.4-46.3) fL RDW Coeff of Zeus (11.5-14.5) % Plt Count (130-400) K/uL MPV (7.4-10.4) fL Immature Gran % (Auto) % Neut % (Auto) % Lymph % (Auto) % [place] % (Auto) % Eos % (Auto) % Baso % (Auto) % Neut # (Auto) (1.4-6.5) K/uL Lymph # (Auto) (1.2-3.4) K/uL [place] # (Auto) (0.11-0.59) K/uL Eos # (Auto) (0-0.5) K/uL Baso # (Auto) (0-0.2) K/uL Immature Gran # (Auto) (0.00-0.02) K/uL Sodium (136-145) mmol/L Potassium (3.5-5.1) mmol/L Chloride (98-107) mmol/L Carbon Dioxide (21-32) mmol/L Anion Gap (3-11) BUN (7-18) mg/dl Creatinine (0.6-1.2) mg/dl Est Cr Clr Drug Dosing ml/min Est GFR ( Amer) ml/min Est GFR (Non-Af Amer) ml/min BUN/Creatinine Ratio (10-20) Glucose (70-99) mg/dl Lactate (0.4-2.0) mmol/L Calcium (8.5-10.1) mg/dl Magnesium 1.8 (1.8-2.4) mg/dl Iron (35-150) mcg/dl TIBC (250-450) mcg/dl Transferrin (200-360) mg/dl Transferrin % Sat (15-50) % Ferritin (8-388) ng/ml Total Bilirubin (0.2-1) mg/dl AST (15-37) U/L ALT (12-78) U/L Alkaline Phosphatase (45-117) U/L Total Protein (6.4-8.2) gm/dl Albumin (3.4-5.0) gm/dl Globulin (2.5-4.0) gm/dl Albumin/Globulin Ratio (0.9-2) Procalcitonin (0-0.5) ng/ml Urine Color Urine Appearance (Clear) Urine pH (4.5-7.5) Ur Specific [place] (1.000-1.030) Urine Protein (Negative) Urine Glucose (UA) (Negative) Urine Ketones (Negative) Urine Blood (Negative) Urine Nitrite (Negative) Urine Bilirubin (Negative) Urine Urobilinogen (Negative) Ur Leukocyte Esterase (Negative) Urine WBC (Auto) (0-5) /hpf Urine RBC (Auto) (0-4) /hpf U Hyaline Cast (Auto) (0-5) /lpf U Epithel Cells (Auto) (0-5) /lpf Urine Bacteria (Auto) (Negative) Urine Test (Negative) COVID-19 Eval Order Covid19 at [facility] SARS-CoV-2 (PCR) NEGATIVE (Negative) 03/04/21 03/04/21 03/05/21 Range/Units 07:20 07:33 06:56 WBC 10.02 (4.8-10.8) K/uL RBC 3.41 L (4.2-5.4) M/uL Hgb 8.6 L (12.0-16.0) g/dL Hct 27.6 L (37-47) % MCV 80.9 (80-100) fL MCH 25.2 (25-34) pg MCHC 31.2 L (32-36) g/dL RDW Std Deviation 52.2 H (36.4-46.3) fL RDW Coeff of Zeus 17.5 H (11.5-14.5) % Plt Count 476 H (130-400) K/uL MPV 8.8 (7.4-10.4) fL Immature Gran % (Auto) 0.3 % Neut % (Auto) 88.4 % Lymph % (Auto) 8.2 % [place] % (Auto) 2.9 % Eos % (Auto) 0.2 % Baso % (Auto) 0.0 % Neut # (Auto) 8.86 H (1.4-6.5) K/uL Lymph # (Auto) 0.82 L (1.2-3.4) K/uL [place] # (Auto) 0.29 (0.11-0.59) K/uL Eos # (Auto) 0.02 (0-0.5) K/uL Baso # (Auto) 0.00 (0-0.2) K/uL Immature Gran # (Auto) 0.03 H (0.00-0.02) K/uL Sodium (136-145) mmol/L Potassium (3.5-5.1) mmol/L Chloride (98-107) mmol/L Carbon Dioxide (21-32) mmol/L Anion Gap (3-11) BUN (7-18) mg/dl Creatinine (0.6-1.2) mg/dl Est Cr Clr Drug Dosing ml/min Est GFR ( Amer) ml/min Est GFR (Non-Af Amer) ml/min BUN/Creatinine Ratio (10-20) Glucose (70-99) mg/dl Lactate (0.4-2.0) mmol/L Calcium (8.5-10.1) mg/dl Magnesium (1.8-2.4) mg/dl Iron (35-150) mcg/dl TIBC (250-450) mcg/dl Transferrin (200-360) mg/dl Transferrin % Sat (15-50) % Ferritin (8-388) ng/ml Total Bilirubin (0.2-1) mg/dl AST (15-37) U/L ALT (12-78) U/L Alkaline Phosphatase (45-117) U/L Total Protein (6.4-8.2) gm/dl Albumin (3.4-5.0) gm/dl Globulin (2.5-4.0) gm/dl Albumin/Globulin Ratio (0.9-2) Procalcitonin (0-0.5) ng/ml Urine Color Yellow Urine Appearance Clear (Clear) Urine pH 7.5 (4.5-7.5) Ur Specific [place] 1.004 (1.000-1.030) Urine Protein Negative (Negative) Urine Glucose (UA) Negative (Negative) Urine Ketones Negative (Negative) Urine Blood Negative (Negative) Urine Nitrite Negative (Negative) Urine Bilirubin Negative (Negative) Urine Urobilinogen Negative (Negative) Ur Leukocyte Esterase Trace H (Negative) Urine WBC (Auto) 5-10 H (0-5) /hpf Urine RBC (Auto) 0-4 (0-4) /hpf U Hyaline Cast (Auto) 1-5 (0-5) /lpf U Epithel Cells (Auto) 10-20 H (0-5) /lpf Urine Bacteria (Auto) Negative (Negative) Urine Test Negative (Negative) COVID-19 Eval Order SARS-CoV-2 (PCR) (Negative) 03/05/21 03/05/21 03/05/21 Range/Units 06:56 06:56 08:17 WBC (4.8-10.8) K/uL RBC (4.2-5.4) M/uL Hgb (12.0-16.0) g/dL Hct (37-47) % MCV (80-100) fL MCH (25-34) pg MCHC (32-36) g/dL RDW Std Deviation (36.4-46.3) fL RDW Coeff of Zeus (11.5-14.5) % Plt Count (130-400) K/uL MPV (7.4-10.4) fL Immature Gran % (Auto) % Neut % (Auto) % Lymph % (Auto) % [place] % (Auto) % Eos % (Auto) % Baso % (Auto) % Neut # (Auto) (1.4-6.5) K/uL Lymph # (Auto) (1.2-3.4) K/uL [place] # (Auto) (0.11-0.59) K/uL Eos # (Auto) (0-0.5) K/uL Baso # (Auto) (0-0.2) K/uL Immature Gran # (Auto) (0.00-0.02) K/uL Sodium 138 (136-145) mmol/L Potassium 4.0 D (3.5-5.1) mmol/L Chloride 108 H (98-107) mmol/L Carbon Dioxide 21 (21-32) mmol/L Anion Gap 9.0 (3-11) BUN 4 L (7-18) mg/dl Creatinine 0.69 (0.6-1.2) mg/dl Est Cr Clr Drug Dosing 108.1 ml/min Est GFR ( Amer) 146.3 ml/min Est GFR (Non-Af Amer) 126.2 ml/min BUN/Creatinine Ratio 6.2 L (10-20) Glucose 88 (70-99) mg/dl Lactate (0.4-2.0) mmol/L Calcium 8.3 L (8.5-10.1) mg/dl Magnesium (1.8-2.4) mg/dl Iron 10 L (35-150) mcg/dl TIBC 356 (250-450) mcg/dl Transferrin 284 (200-360) mg/dl Transferrin % Sat 2 L (15-50) % Ferritin 49.8 (8-388) ng/ml Total Bilirubin (0.2-1) mg/dl AST (15-37) U/L ALT (12-78) U/L Alkaline Phosphatase (45-117) U/L Total Protein (6.4-8.2) gm/dl Albumin (3.4-5.0) gm/dl Globulin (2.5-4.0) gm/dl Albumin/Globulin Ratio (0.9-2) Procalcitonin 25.32 H (0-0.5) ng/ml Urine Color Urine Appearance (Clear) Urine pH (4.5-7.5) Ur Specific [place] (1.000-1.030) Urine Protein (Negative) Urine Glucose (UA) (Negative) Urine Ketones (Negative) Urine Blood (Negative) Urine Nitrite (Negative) Urine Bilirubin (Negative) Urine Urobilinogen (Negative) Ur Leukocyte Esterase (Negative) Urine WBC (Auto) (0-5) /hpf Urine RBC (Auto) (0-4) /hpf U Hyaline Cast (Auto) (0-5) /lpf U Epithel Cells (Auto) (0-5) /lpf Urine Bacteria (Auto) (Negative) Urine Test (Negative) COVID-19 Eval Order SARS-CoV-2 (PCR) (Negative) Imaging Data Radiologist's Impression: Abdomen/Pelvis CT 03/04/21 08:25 CT SCAN OF THE ABDOMEN AND PELVIS WITH IV CONTRAST CLINICAL HISTORY: Urinary tract infection. Pyelonephritis. Flank pain. Dysuria. COMPARISON STUDY: No priors. TECHNIQUE: Following the IV administration of 94 cc of Optiray 320, CT scan of the abdomen and pelvis is performed from the lung bases to the proximal femora. Images are reviewed in the axial, sagittal, and coronal planes. IV contrast was administered without complication. A dose lowering technique was utilized adhering to the principles of ALARA. There is streak artifact from a metallic naval piercing. CT DOSE: 266.52 mGy.cm FINDINGS: Lung bases: The heart is normal in size and without pericardial effusion. The lung bases are clear. Liver: The contrast-enhanced liver is normal in size, contour, and attenuation. There is no intrahepatic biliary ductal dilatation. The hepatic veins and portal veins are patent. Gallbladder: Unremarkable. Spleen: Normal in size and attenuation. Pancreas: Unremarkable. Adrenal glands: Unremarkable. Kidneys: The contrast enhanced kidneys are normal in size and without hydronephrosis. Mild urothelial thickening and enhancement is seen involving the left ureter. There is a striated nephrogram on the left. The right kidney enhances homogeneously. There is a 13 mm indeterminant low-attenuation focus in the anterior interpolar left kidney seen on image #127 with surrounding edema. Abdominal vasculature: The abdominal aorta is normal in course and caliber. Bowel: There is no bowel obstruction. Moderate fecal retention is seen throughout the colon. The appendix is well-visualized and normal. Peritoneum: There is no intraperitoneal free air or abdominal ascites. There is a small fat-containing umbilical hernia. A naval piercing is in place. Lymphadenopathy: None. Pelvic viscera: The bladder is distended and appears mildly thick-walled. The uterus and adnexa are normal as visualized noting bilateral ovarian follicles. A small volume of free fluid is seen in the cul-de-sac. Skeletal structures: No lytic or blastic lesions are seen. IMPRESSION: 1. Findings are compatible with cystitis and ascending urinary tract infection/polynephritis of the left kidney. 2. There is a 13 mm indeterminant cortical hypodensity with surrounding edema in the anterior interpolar left kidney which does not meet criteria for a simple cyst. This likely represents a small abscess. 3. A small volume of free fluid in the cul-de-sac is nonspecific. ACT 112: Negative or not required by law. Electronically signed by: Abdiel Murphy M.D. 03/04/2021 9:12 AM Blood Pressure Blood Pressure Findings: Normal blood pressure Blood Pressure Disposition: did not require urgent referral MDM Narrative This patient was evaluated and appeared to be in no significant distress. IV access was obtained and laboratory work was drawn. An order for cardiac monitoring was placed and the patient is noted to be in sinus tachycardia at 120 bpm. Blood pressure has remained stable. She was hydrated with normal saline solution. Blood cultures and lactate were performed. CT imaging of the abdomen pelvis was performed and reveals a small abscess on the left kidney. UA is relatively unrevealing however this may be due to this patient's recent course of Macrobid. WBC is elevated at 13.7 with a lactate of 1.2. Patient was medicated with IV ceftriaxone. Case was discussed with the hospitalist service who will evaluate patient for admission and further management. Patient was made aware of plan and agreed. Impression & Plan Pyelonephritis, Abscess of left kidney Discharge Plan Visit Data Chief Complaint: Illness Stated Complaint: VOMITING,FLANK PAIN,FEEBLENESS,FEVER,HEADACHE ED Provider: Olinda Coburn Discharge Problem: Pyelonephritis, Abscess of left kidney Patient Disposition: Admitted As Inpatient Discharge Instructions Interventions: ED Discharge Assessment Last Done: 03/04/21 11:53
[2021-03-04] MEDS: ACETAMINOPHEN 500 MG TAB PO PRN ×2 (14:38→23:46)
[2021-03-04] MEDS: LACTOBACILLUS ACIDOPHILUS 1 GM PACK PO SCH ×2 (15:27→18:35)
[2021-03-04] MEDS: LACTATED RINGER'S 1,000 ML IV SCH ×2 (15:27→21:58)
[2021-03-04] MEDS ORDERED: KETOROLAC TROMETHAMINE 15 MG/ML VIAL IV ONE (18:27)
[2021-03-04] MEDS: CEROVITE ADV FORMULA TAB PO SCH (20:23)
[2021-03-04] MEDS: HEPARIN SOD 5,000 UNIT/0.5 ML VIAL SQ SCH (20:23)
[2021-03-04] MEDS ORDERED: DROSPIRENONE ETHINYL ESTRADIOL PO SCH (21:00)
[2021-03-04] MEDS: ONDANSETRON INJ 2 MG/ML 2 ML VIAL IV PRN (21:25)
[2021-03-04] MEDS: KETOROLAC TROMETHAMINE 15 MG/ML VIAL IV PRN (21:25)
[2021-03-05] MEDS ORDERED: CLOTRIMAZOLE VAGINAL CR 7 APPLN/45 GM TUBE PV PRN (00:11)
[2021-03-05] MEDS: LACTATED RINGER'S 1,000 ML IV SCH ×3 (05:20→21:19)
[2021-03-05 07:38] LABS: Eosinophils # (auto) 0.02 K/uL (0-0.5); Eosinophils % (auto) 0.2 %; Hematocrit (blood only) 27.6 % (37-47); Hemoglobin 8.6 g/dL (12.0-16.0); Immature Granulocytes # (auto) 0.03 K/uL (0.00-0.02); Immature Granulocytes % (auto) 0.3 %; Lymphocytes # (auto) 0.82 K/uL (1.2-3.4); Lymphocytes % (auto) 8.2 %; Mean Corpuscular Hemoglobin 25.2 pg (25-34); Mean Corpuscular Hgb Conc 31.2 g/dL (32-36); Mean Corpuscular Volume 80.9 fL (80-100); Mean Platelet Volume 8.8 fL (7.4-10.4); Monocytes # (auto) 0.29 K/uL (0.11-0.59); Monocytes % (auto) 2.9 %; Neutrophils # (auto) 8.86 K/uL (1.4-6.5); Neutrophils % (auto) 88.4 %; Platelet Count 476 K/uL (130-400); RDW Coefficient of Variation 17.5 % (11.5-14.5); RDW Standard Deviation 52.2 fL (36.4-46.3); Red Blood Count 3.41 M/uL (4.2-5.4); White Blood Count 10.02 K/uL (4.8-10.8)
[2021-03-05] MEDS: LACTOBACILLUS ACIDOPHILUS 1 GM PACK PO SCH ×3 (07:38→16:21)
[2021-03-05] MEDS: KETOROLAC TROMETHAMINE 15 MG/ML VIAL IV PRN ×2 (07:38→15:03)
[2021-03-05] MEDS: ACETAMINOPHEN 500 MG TAB PO PRN ×2 (07:41→16:21)
[2021-03-05] MEDS: ONDANSETRON INJ 2 MG/ML 2 ML VIAL IV PRN (07:47)
[2021-03-05] MEDS: cefTRIAXone SODIUM 1,000 MG in DEXTROSE 5% 50 ML IV SCH (07:47)
--- NOTE | 2021-03-05 08:10 | Hospitalist Progress Note ---
Date of Service March 05, 2021 Assessment & Plan (1) Pyelonephritis: Plan: Recently treated with Macrobid as outpatient but PCP wanted to change abx, patient had been feeling better and declined. Records from [facility] reviewed on admission - Urinalysis was positive. Urine culture with no growth. CTA/P with cystitis and ascending urinary tract infection/pyelonephritis of the left kidney. Also, 13mm small abscess noted Urology consulted -- abscess <2cm and no perc intervention required. recs for extended course abx Temp 39.4C in ER --> 37.9C last evening but nothing since WBC now normal Continues on LR @ 125cc/hr Blood cultures pending -- follow Urine culture pending -- follow Continues on Ceftriaxone daily -- if cultures negative, would utilize extended course Cipro, otherwise will base on c/s Tylenol prn Monitor I&O Repeat CT in one month for resolution -- patient deciding local vs at [facility] for follow up. Continue to monitor (2) Abscess of left kidney: Plan: Small at 1.3 cm. - Treat underlying pyelonephritis - Follow vital signs and electrolytes (3) Hypokalemia: Plan: Low on admission -- secondary to decreased PO intake -- oral replacement ordered Mag wnl Resolved -- continue to monitor (4) DVT prophylaxis: Plan: Heparin 5000 units subcutaneously every 12 hours while inpatient Ambulate as tolerated Plan: Continued inpatient stay on IV antibiotics Possible d/c tomorrow vs Thursday based on cultures/patient symptoms/PO intake Admission and Anticipated Discharge Date Admission Date: March 04, 2021 Subjective Patient evaluated this morning. Feeling better. Episode of nausea/chest discomfort this morning but quickly resolved. Not much of an appetite. Decreased urinary frequency and burning but still present. Discussed repeat CT imaging -- she is considering doing closer at home but if changes her mind will arrange for follow up locally. No shortness of breath, vomiting or other symptoms reported. Plans for waiting urine culture (prior 2 negative) but if negative will utilize Cipro, extended course, otherwise will tailor based on c/s. 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 Will need school excuse at d/c. Review of Systems Review of Systems: All systems reviewed & are unremarkable except as noted in HPI & below Physical Exam Constitutional: WD/WN, vitals as above cooperative and comfortable; no acute distress Eyes: PERRL, conjunctivae normal, anicteric sclerae ENMT: external ear and nose normal, oropharynx normal Neck: trachea midline Respiratory: normal respiratory effort, lungs clear to auscultation Cardiovascular: RRR, no murmur, no edema Gastrointestinal (Abdomen): normal bowel sounds, soft, nontender, no hepatosplenomegaly Musculoskeletal: no cyanosis or clubbing, extremities motor strength 5/5 Skin: warm, dry Psychiatric: A+Ox3, euthymic affect Genitourinary: + Left CVA tenderness Results & Data Results & Data ([facility]) Vital Signs (Past 12 Hours) Vital Signs Temp Pulse Resp BP Pulse Ox 03/05/21 07:49 36.5 C 100 H 16 119/77 99 03/04/21 23:24 37.9 C H 111 H 16 104/65 99 03/04/21 21:24 37.7 C H Laboratory Results 03/05/21 03/05/21 03/05/21 Range/Units 08:17 06:56 06:56 WBC (4.8-10.8) K/uL RBC (4.2-5.4) M/uL Hgb (12.0-16.0) g/dL Hct (37-47) % MCV (80-100) fL MCH (25-34) pg MCHC (32-36) g/dL RDW Std Deviation (36.4-46.3) fL RDW Coeff of Zeus (11.5-14.5) % Plt Count (130-400) K/uL MPV (7.4-10.4) fL Immature Gran % (Auto) % Neut % (Auto) % Lymph % (Auto) % [place] % (Auto) % Eos % (Auto) % Baso % (Auto) % Neut # (Auto) (1.4-6.5) K/uL Lymph # (Auto) (1.2-3.4) K/uL [place] # (Auto) (0.11-0.59) K/uL Eos # (Auto) (0-0.5) K/uL Baso # (Auto) (0-0.2) K/uL Immature Gran # (Auto) (0.00-0.02) K/uL Sodium 138 (136-145) mmol/L Potassium 4.0 D (3.5-5.1) mmol/L Chloride 108 H (98-107) mmol/L Carbon Dioxide 21 (21-32) mmol/L Anion Gap 9.0 (3-11) BUN 4 L (7-18) mg/dl Creatinine 0.69 (0.6-1.2) mg/dl Est Cr Clr Drug Dosing 108.1 ml/min Est GFR ( Amer) 146.3 ml/min Est GFR (Non-Af Amer) 126.2 ml/min BUN/Creatinine Ratio 6.2 L (10-20) Glucose 88 (70-99) mg/dl Calcium 8.3 L (8.5-10.1) mg/dl Magnesium (1.8-2.4) mg/dl Iron 10 L (35-150) mcg/dl TIBC 356 (250-450) mcg/dl Transferrin 284 (200-360) mg/dl Transferrin % Sat 2 L (15-50) % Ferritin 49.8 (8-388) ng/ml Procalcitonin 25.32 H (0-0.5) ng/ml 03/05/21 03/04/21 Range/Units 06:56 06:35 WBC 10.02 (4.8-10.8) K/uL RBC 3.41 L (4.2-5.4) M/uL Hgb 8.6 L (12.0-16.0) g/dL Hct 27.6 L (37-47) % MCV 80.9 (80-100) fL MCH 25.2 (25-34) pg MCHC 31.2 L (32-36) g/dL RDW Std Deviation 52.2 H (36.4-46.3) fL RDW Coeff of Zeus 17.5 H (11.5-14.5) % Plt Count 476 H (130-400) K/uL MPV 8.8 (7.4-10.4) fL Immature Gran % (Auto) 0.3 % Neut % (Auto) 88.4 % Lymph % (Auto) 8.2 % [place] % (Auto) 2.9 % Eos % (Auto) 0.2 % Baso % (Auto) 0.0 % Neut # (Auto) 8.86 H (1.4-6.5) K/uL Lymph # (Auto) 0.82 L (1.2-3.4) K/uL [place] # (Auto) 0.29 (0.11-0.59) K/uL Eos # (Auto) 0.02 (0-0.5) K/uL Baso # (Auto) 0.00 (0-0.2) K/uL Immature Gran # (Auto) 0.03 H (0.00-0.02) K/uL Sodium (136-145) mmol/L Potassium (3.5-5.1) mmol/L Chloride (98-107) mmol/L Carbon Dioxide (21-32) mmol/L Anion Gap (3-11) BUN (7-18) mg/dl Creatinine (0.6-1.2) mg/dl Est Cr Clr Drug Dosing ml/min Est GFR ( Amer) ml/min Est GFR (Non-Af Amer) ml/min BUN/Creatinine Ratio (10-20) Glucose (70-99) mg/dl Calcium (8.5-10.1) mg/dl Magnesium 1.8 (1.8-2.4) mg/dl Iron (35-150) mcg/dl TIBC (250-450) mcg/dl Transferrin (200-360) mg/dl Transferrin % Sat (15-50) % Ferritin (8-388) ng/ml Procalcitonin (0-0.5) ng/ml Diagnostic Findings Abdomen/Pelvis CT 03/04/21 08:25 CT SCAN OF THE ABDOMEN AND PELVIS WITH IV CONTRAST CLINICAL HISTORY: Urinary tract infection. Pyelonephritis. Flank pain. Dysuria. COMPARISON STUDY: No priors. TECHNIQUE: Following the IV administration of 94 cc of Optiray 320, CT scan of the abdomen and pelvis is performed from the lung bases to the proximal femora. Images are reviewed in the axial, sagittal, and coronal planes. IV contrast was administered without complication. A dose lowering technique was utilized adhering to the principles of ALARA. There is streak artifact from a metallic naval piercing. CT DOSE: 266.52 mGy.cm FINDINGS: Lung bases: The heart is normal in size and without pericardial effusion. The lung bases are clear. Liver: The contrast-enhanced liver is normal in size, contour, and attenuation. There is no intrahepatic biliary ductal dilatation. The hepatic veins and portal veins are patent. Gallbladder: Unremarkable. Spleen: Normal in size and attenuation. Pancreas: Unremarkable. Adrenal glands: Unremarkable. Kidneys: The contrast enhanced kidneys are normal in size and without hydronephrosis. Mild urothelial thickening and enhancement is seen involving the left ureter. There is a striated nephrogram on the left. The right kidney enhances homogeneously. There is a 13 mm indeterminant low-attenuation focus in the anterior interpolar left kidney seen on image #127 with surrounding edema. Abdominal vasculature: The abdominal aorta is normal in course and caliber. Bowel: There is no bowel obstruction. Moderate fecal retention is seen throug hout the colon. The appendix is well-visualized and normal. Peritoneum: There is no intraperitoneal free air or abdominal ascites. There is a small fat-containing umbilical hernia. A naval piercing is in place. Lymphadenopathy: None. Pelvic viscera: The bladder is distended and appears mildly thick-walled. The uterus and adnexa are normal as visualized noting bilateral ovarian follicles. A small volume of free fluid is seen in the cul-de-sac. Skeletal structures: No lytic or blastic lesions are seen. IMPRESSION: 1. Findings are compatible with cystitis and ascending urinary tract infection/polynephritis of the left kidney. 2. There is a 13 mm indeterminant cortical hypodensity with surrounding edema in the anterior interpolar left kidney which does not meet criteria for a simple cyst. This likely represents a small abscess. 3. A small volume of free fluid in the cul-de-sac is nonspecific. ACT 112: Negative or not required by law. Electronically signed by: Abdiel Murphy M.D. 03/04/2021 9:12 AM PG Care Time/CCT Total # of Minutes Spent Total Time Spent with Patient: Total time spent is greater than 50% in coordination of care (as documented) at patient's floor/unit and/or counseling patient: Coding Level of Care Code 62339 Subseq Hosp Care Lvl 2 Diagnoses Pyelonephritis N12 Abscess of left kidney N15.1 Hypokalemia E87.6 DVT prophylaxis Z29.9
[2021-03-05 08:16] LABS: BUN Creatinine Ratio 6.2 (10-20); Calcium 8.3 mg/dl (8.5-10.1); Creatinine Clr Calc Pharmacy 108.1 ml/min; Est GFR (African American) 146.3 ml/min; Est GFR (Non-African American) 126.2 ml/min
[2021-03-05] MEDS ORDERED: PATIENT'S OWN ORAL CONTRACEPTIVE PO SCH (09:00)
--- NOTE | 2021-03-05 09:16 | Urology Consultation ---
Date of Consultation March 05, 2021 Assessment & Plan (1) Pyelonephritis: (2) Abscess of left kidney: 20 yo F admitted for fever, left pyelonephritis and small left renal abscess. - Plan of care reviewed with Dr. 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 - Pt febrile earlier this AM, T 39.5, resolved at time of exam, nontoxic - Will likely continue to have cyclical fevers for some time given abscess - Lab work reviewed - creatinine 0.69, WBC 10.02, Hgb 8.6 - BCx no growth x 24 hours, urine culture pending - on IV Ceftriaxone, follow cultures - CTAP consistent with cystitis and pyelonephritis of the left kidney, a 13 mm indeterminant cortical hypodensity with surrounding edema in the anterior i nterpolar left kidney suggestive of small abscess - Abscess is less than 2 cm, no percutaneous surgical intervention required - Recommend continue treatment with IV antibiotics while inpatient - Recommend extended course of PO antibiotics upon discharge per final culture, or Ciprofloxacin if culture returns negative - Continue supportive care and management per primary service - Recommend repeat CT imaging in 1 month to ensure resolution - patient prefers to do through [facility], so will likely need to be arranged through her PCP Thank you for allowing us to participate in the acute care of Ms. Seth. Please reconsult us with additional questions, concerns or changes in patient status. History of Present Illness Reason for Consultation: Pyelonephritis with abscess Requesting Physician: Dr. Espinoza Attending Physician: Freeman Espinoza MD History of Present Illness 20 year old female with no significant past medical history admitted for fever, left pyelonephritis and small left renal abscess. She presented to [facility] ED on 03/04/21 with fever and left flank pain. She was recently treated with Macrobid as an outpatient for urinary tract infection. Per admission notes, her UA was suggestive of infection, urine culture was negative. Initially was feeling better on home antibiotics, but then began to have fever, ill feelings, and flank pain. She was febrile on arrival, Tmax 39.4. Lab work showed creatinine 0.75, WBC 13.27, Hgb 9.1, Lactate 1.2. Urinalysis 5-10 WBCs, 0-4 RBCs, 10-20 epithelials, negative for nitrates and bacteria. Urine and blood cultures obtained. CTAP w/ IV con showed findings consistent with cystitis and ascending urinary tract infection/pyelonephritis of the left kidney as well as a 13 mm indeterminant cortical hypodensity with surrounding edema in the anterior interpolar left kidney suggestive of small abscess. ED course included Acetaminophen, IV fluids, Ceftriaxone, Ondansetron, and potassium chloride. She was admitted by hospital medicine for further management. Our service is consulted for pyelonephritis with abscess. Chart Review: Afebrile overnight Creatinine 0.69 WBC 10.02 Hgb 8.6 Blood culture 03/04 - no growth x 24 hours UC&S pending - pending On IV Ceftriaxone Patient seen and examined at bedside. She denies Hx of frequent UTIs. She was treated with Macrobid from 02/21-02/28. Reports incomplete resolution of symptoms and then developed worsening symptoms prompting her presentation. She is awake, alert and sitting up in bed. Reports that she feels better than yesterday. She continues to have intermittent dysuria, no hematuria. Left flank pain is improved. She reports low appetite, but currently no nausea or vomiting. She reports fever this morning, but now improved. Nurse at bedside confirms that she had a temperature of 103 F this am (not yet documented in chart at this time), but now improved to 98.8 F during my interview. No additional concerns today. Allergies Allergy/AdvReac Type Severity Reaction Status Date / Time No Known Allergies Allergy Verified 03/04/21 10:13 Home Medications Medication Instructions Recorded Confirmed Type acetaminophen 500 mg tablet 1,000 mg PO Q8H PRN 04/23/20 03/04/21 History (Tylenol Extra Strength) drospirenone 3 mg-ethinyl 1 tab PO PM 03/04/21 03/04/21 History estradiol 0.02 mg tablet (KP (28)) ibuprofen 200 mg tablet (Motrin IB) 600 mg PO Q6H PRN 03/04/21 03/04/21 History iron,carbonyl 65 mg-vitamin C 125 1 tab PO PM 03/04/21 03/04/21 History mg tablet,delayed release (Vitron-C) Patient History Medical History No acute medical problems Surgical History No pertinent past surgical history Social History Smoking Status: Never smoker Second Hand Exposure: No; Do You Dip or Chew Tobacco: No; Tobacco Cessation Education Requested by Patient: No Hx Alcohol Use: Yes Hx Substance Use: No Preferred Language: Syrian Communication Ability: Effective Pediatric Orthodontist Required: No Beliefs That Will Affect Care: None Current Living Situation: Other Current Living Situation Comment: [facility] Other Information That Helps Us Care for You: No Feels Safe at Home: Yes Safety Concerns: Feels Safe At This Time Assistive Devices: None Review of Systems Constitutional: as per Subjective / HPI Respiratory: no problem reported Cardiovascular: no problem reported Gastrointestinal: as per Subjective / HPI Genitourinary: as per Subjective / HPI Musculoskeletal: no problem reported Integumentary: no problem reported Neurologic: no problem reported Psychiatric: no problem reported Physical Exam Constitutional: well developed and well nourished; no acute distress and not ill appearing Neck: normal visual inspection Respiratory: normal respiratory effort and able to speak in complete sentences; no respiratory distress and no labored breathing Gastrointestinal (Abdomen): Inspection/Auscultation: abdomen normal to inspection; abdomen not distended Percussion/Palpation: abdomen soft; abdomen nontender and no guarding Musculoskeletal: Head/Neck/Chest: normocephalic and head atraumatic Neurologic: moves all extremities and awake Psychiatric: Orientation: alert, oriented x 3 and cooperative Genitourinary: + CVA tenderness (mild tenderness to palpation on left flank) Results & Data ([facility]) Vital Signs (Past 12 Hours) Vital Signs Temp Pulse Resp BP Pulse Ox 03/05/21 07:49 36.5 C 100 H 16 119/77 99 03/04/21 23:24 37.9 C H 111 H 16 104/65 99 03/04/21 21:24 37.7 C H PG Care Time/CCT Total # of Minutes Spent Total Time Spent with Patient: Total time spent is greater than 50% in coordination of care (as documented) at patient's floor/unit and/or counseling patient: Coding Level of Care Code 82543 Inpt Consult Level 3 Diagnoses Pyelonephritis N12 Abscess of left kidney N15.1
[2021-03-05] MEDS: HEPARIN SOD 5,000 UNIT/0.5 ML VIAL SQ SCH ×2 (10:13→21:26)
[2021-03-05 10:44] LABS: Ferritin 49.8 ng/ml (8-388)
[2021-03-05] MEDS ORDERED: FERROUS SULFATE 325 MG TAB PO ONE (19:00)
[2021-03-05] MEDS ORDERED: bisacodyL 5 MG TABEC PO ONE (19:54)
[2021-03-05] MEDS: CEROVITE ADV FORMULA TAB PO SCH (21:26)
[2021-03-05] MEDS ORDERED: IRON SUCROSE 300 MG in SODIUM CHLORIDE 0.9% 250 ML IV ONE (21:30)
[2021-03-05] MEDS: PATIENT'S OWN ORAL CONTRACEPTIVE PO SCH (22:00)
[2021-03-06] MEDS: ACETAMINOPHEN 500 MG TAB PO PRN ×3 (04:00→20:26)
[2021-03-06] MEDS: LACTATED RINGER'S 1,000 ML IV SCH ×3 (07:55→22:11)
[2021-03-06] MEDS: LACTOBACILLUS ACIDOPHILUS 1 GM PACK PO SCH ×3 (07:56→18:15)
[2021-03-06] MEDS: cefTRIAXone SODIUM 1,000 MG in DEXTROSE 5% 50 ML IV SCH (07:56)
[2021-03-06] MEDS: DOCUSATE SODIUM/SENNA 50/8.6MG TAB PO SCH (07:57)
[2021-03-06] MEDS: POLYETHYLENE (MIRALAX) 17 GM PACK PO SCH (07:57)
[2021-03-06] MEDS: HEPARIN SOD 5,000 UNIT/0.5 ML VIAL SQ SCH ×2 (07:57→20:26)
--- NOTE | 2021-03-06 08:24 | Hospitalist Progress Note ---
Date of Service March 06, 2021 Assessment & Plan (1) Pyelonephritis: Plan: Recently treated with Macrobid as outpatient but PCP wanted to change abx, patient had been feeling better and declined. Records from [facility] reviewed on admission - Urinalysis was positive. Urine culture with no growth. CTA/P with cystitis and ascending urinary tract infection/pyelonephritis of the left kidney. Also, 13mm small abscess noted Temp 39.4C in ER procal 25.3 Urology consulted -- abscess <2cm and no perc intervention required. recs for extended course abx Cycling fevers expected w abscess per Urology Temp 39.1C overnight Urine cx negative but will continue IV abx while inpatient and plans for Cipro at d/c, extended course Blood cx NGTD x 48 hrs -- monitor Continue IVF Tylenol prn --> Discussed to avoid Toradol/limit use given stomach discomfort, possible u lceration Repeat CT 1 month for resolution -- may need done at home given insurance issues (CM looking into this) Continue to monitor (2) Anemia: Plan: hx of, unknown cause however does have mainly poultry for diet, not much iron in veggies. Educated to increase intake No hematuria, melena, hematochezia reported but never tested MCV low normal and checked iron stores --> would have expected lower MCV given IRON LOW AT 10, Trans % sat 2. 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 TSH checked last week outpt and normal 1.8) --> Peripheral smear added to AM labs as well --? CHS/sickle/other underlying etiology (3) Abscess of left kidney: Plan: Small at 1.3 cm. - Treat underlying pyelonephritis - Follow vital signs and electrolytes (4) Hypokalemia: Plan: Low on admission -- secondary to decreased PO intake -- oral replacement ordered Mag wnl Resolved -- continue to monitor (5) DVT prophylaxis: Plan: Heparin 5000 units subcutaneously every 12 hours while inpatient Ambulate as tolerated Plan: Continued inpatient stay on IV antibiotics, possible transition to PO CIpro tomorrow Venofer to be completed tomorrow Working on follow up care -- need repeat CT 1 month GI on consult given anemia for possible work-up --> does not have local insurance coverage outside of emergent hospitalizations and would not be able to be done outpatient. inpatient if possible/feasible based on recs by GI Admission and Anticipated Discharge Date Admission Date: March 05, 2021 Subjective Patient evaluated this afternoon. Feeling better than this morning but still weak/fatigued. 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 Not much of an appetite still. No chest pain, palpitations, shortness of breath reported. No BM since last Thursday. Issues with this chronically, which she believes is a problem. Has hx of anemia and recently started on Vitron C. No heavy bleeding and had only had spotting over past month. Not regular on current OCP. Admits to poultry for diet but no red meats/fishes and does not have large intake of legumes or other veggies high in iron. Discussed this may be helpful to help with stores and the oral iron could contribute to constipation. TSH checked last week at home and was normal at 1.88. No hx alternating bowel habits, weight loss, family hx abdominal/colon ca. No hx sickle cell, thalasemia, or other blood dyscrasias noted. Never seen by GI in past for further eval. Will give Venofer x 3 doses while inpatient. Urine cx negative and will plan on Cipro PO at d/c but continue IV abx for now given elevated temp. She does note some "stomach pain" not epigastric but in region of stomach. Discussed could be from toradol and will give dose of pepcid and limit toradol. Will add oxycodone prn. Tolerated without issue in the past. Also will order mag citrate x 1 for bowel and monitor. Feeling better, but if condition worsens will repeat CTAP. Still looking into available follow up care given her insurance. Review of Systems Review of Systems: All systems reviewed & are unremarkable except as noted in HPI & below Physical Exam Constitutional: WD/WN, vitals as above cooperative and comfortable; no acute distress Eyes: PERRL, conjunctivae normal, anicteric sclerae ENMT: dry mm Neck: trachea midline Respiratory: normal respiratory effort, lungs clear to auscultation Cardiovascular: RRR, no murmur, no edema Gastrointestinal (Abdomen): +BS, soft, minimal tender RUQ/epigastric, no guarding or rigidity Musculoskeletal: no cyanosis or clubbing, extremities motor strength 5/5 Skin: warm, dry Psychiatric: A+Ox3, euthymic affect Genitourinary: no weiss Results & Data Results & Data ([facility]) Vital Signs (Past 12 Hours) Vital Signs Temp Pulse Resp BP BP Pulse Ox 03/06/21 08:07 37.5 C 81 16 118/79 100 03/06/21 05:39 37.6 C H 03/06/21 03:58 39.1 C H 102 H 15 118/67 98 03/06/21 02:20 37.6 C H 102 H 16 103/66 99 03/06/21 01:56 38.5 C H 81 15 110/66 100 03/05/21 22:31 37.2 C 70 16 107/70 92 Laboratory Results 03/06/21 03/06/21 03/06/21 Range/Units 07:48 07:48 07:48 WBC 5.84 (4.8-10.8) K/uL RBC 3.26 L (4.2-5.4) M/uL Hgb 8.3 L (12.0-16.0) g/dL Hct 26.2 L (37-47) % MCV 80.4 (80-100) fL MCH 25.5 (25-34) pg MCHC 31.7 L (32-36) g/dL RDW Std Deviation 51.0 H (36.4-46.3) fL RDW Coeff of Zeus 17.4 H (11.5-14.5) % Plt Count 434 H (130-400) K/uL MPV 8.8 (7.4-10.4) fL Immature Gran % (Auto) 0.3 % Neut % (Auto) 73.6 % Lymph % (Auto) 22.6 % Powell % (Auto) 2.4 % Eos % (Auto) 0.9 % Baso % (Auto) 0.2 % Neut # (Auto) 4.30 (1.4-6.5) K/uL Lymph # (Auto) 1.32 (1.2-3.4) K/uL Powell # (Auto) 0.14 (0.11-0.59) K/uL Eos # (Auto) 0.05 (0-0.5) K/uL Baso # (Auto) 0.01 (0-0.2) K/uL Immature Gran # (Auto) 0.02 (0.00-0.02) K/uL Toxic Vacuolation 1+ Peripher Smr Path Cons Sodium 138 (136-145) mmol/L Potassium 4.0 (3.5-5.1) mmol/L Chloride 108 H (98-107) mmol/L Carbon Dioxide 23 (21-32) mmol/L Anion Gap 7.0 (3-11) BUN 3 L (7-18) mg/dl Creatinine 0.61 (0.6-1.2) mg/dl Est Cr Clr Drug Dosing 122.2 ml/min Est GFR ( Amer) > 150.0 ml/min Est GFR (Non-Af Amer) 131.4 ml/min BUN/Creatinine Ratio 5.4 L (10-20) Glucose 81 (70-99) mg/dl Calcium 8.3 L (8.5-10.1) mg/dl Vitamin B12 582 (193-986) pg/ml Folate 8.60 (>5.38) ng/ml PG Care Time/CCT Total # of Minutes Spent Total Time Spent with Patient: Total time spent is greater than 50% in coordination of care (as documented) at patient's floor/unit and/or counseling patient: Coding Level of Care Code 80887 Subseq Hosp Care Lvl 3 Diagnoses Pyelonephritis N12 Abscess of left kidney N15.1 Hypokalemia E87.6 DVT prophylaxis Z29.9 Anemia D64.9
[2021-03-06 08:27] LABS: Basophils # (auto) 0.01 K/uL (0-0.2); Basophils % (auto) 0.2 %; Eosinophils # (auto) 0.05 K/uL (0-0.5); Eosinophils % (auto) 0.9 %; Hematocrit (blood only) 26.2 % (37-47); Hemoglobin 8.3 g/dL (12.0-16.0); Immature Granulocytes # (auto) 0.02 K/uL (0.00-0.02); Immature Granulocytes % (auto) 0.3 %; Lymphocytes # (auto) 1.32 K/uL (1.2-3.4); Lymphocytes % (auto) 22.6 %; Mean Corpuscular Hemoglobin 25.5 pg (25-34); Mean Corpuscular Hgb Conc 31.7 g/dL (32-36); Mean Corpuscular Volume 80.4 fL (80-100); Mean Platelet Volume 8.8 fL (7.4-10.4); Monocytes # (auto) 0.14 K/uL (0.11-0.59); Monocytes % (auto) 2.4 %; Neutrophils % (auto) 73.6 %; Platelet Count 434 K/uL (130-400); RDW Coefficient of Variation 17.4 % (11.5-14.5); Red Blood Count 3.26 M/uL (4.2-5.4); White Blood Count 5.84 K/uL (4.8-10.8)
[2021-03-06 09:03] LABS: BUN Creatinine Ratio 5.4 (10-20); Blood Urea Nitrogen 3 mg/dl (7-18); Calcium 8.3 mg/dl (8.5-10.1); Carbon Dioxide 23 mmol/L (21-32); Chloride 108 mmol/L (98-107); Creatinine Clr Calc Pharmacy 122.2 ml/min; Est GFR (African American) > 150.0 ml/min; Est GFR (Non-African American) 131.4 ml/min; Glucose 81 mg/dl (70-99); Sodium 138 mmol/L (136-145)
[2021-03-06 09:07] LABS: Toxic Vacuolation 1+
[2021-03-06 09:50] LABS: Folate (Folic Acid) 8.6 ng/ml (>5.38)
--- NOTE | 2021-03-06 11:52 | Urology Progress Note ---
Date of Service March 06, 2021 Assessment & Plan (1) Pyelonephritis: (2) Abscess of left kidney: Plan: 20 yo F admitted for fever, left pyelonephritis and small left renal abscess. - Plan of care reviewed with Dr. Mata, urologist engineering documentation specialist - Pt febrile overnight, Tmax 39.1, afebrile at present - Will likely continue to have cyclical fevers given abscess - Lab work reviewed - creatinine 0.61, WBC 5.84, Hgb 8.3 - Pt reports feeling fatigued/weak but also found to have Iron at 10, trans % sat 2, PO iron yesterday with plan for IV replacement - BCx no growth x 48 hours, urine culture showed low counts of probable skin anupam - on IV Ceftriaxone - Abscess is less than 2 cm - no percutaneous surgical intervention required at present - Continue treatment with IV antibiotics - If she is not clinically improving, then recommend repeat CT imaging - Continue supportive care and management per primary service Admission and Anticipated Discharge Date Admission Date: March 05, 2021 Supervising Physician Co-Signing Physician Notes Patient getting iron. Overall feels better . If she continues to spike a fever would check sonogram to r/o enlarging abscess which would require transfer for drainage Subjective Patient asleep and resting in bed, arouses easily to her name. Reports feeling weak and low appetite. Mild left flank pain and abdominal discomfort. No nausea or vomiting at present. Voiding in toilet, occasional dysuria, no hematuria Reports fever overnight. Denies fever/chills currently. Chart review: Febrile overnight - Tmax 39.1 @0358 Creatinine 0.61 WBC 5.84 Hgb 8.3 Iron 10 UC&S - low counts probable skin anupam BCx - no growth x 48 hours On IV Ceftriaxone Review of Systems Constitutional: as per Subjective / HPI Gastrointestinal: as per Subjective / HPI Genitourinary: as per Subjective / HPI Physical Exam Constitutional: well developed and well nourished; no acute distress and not ill appearing Respiratory: normal respiratory effort and able to speak in complete sentences; no respiratory distress and no labored breathing Cardiovascular: Extremities: no pedal edema Gastrointestinal (Abdomen): Inspection/Auscultation: abdomen normal to inspection; abdomen not distended Percussion/Palpation: abdomen soft; abdomen nontender and no guarding Neurologic: moves all extremities and awake Psychiatric: Orientation: alert and oriented x 3 Genitourinary: + CVA tenderness (mildly tender to palpation left flank) Results & Data ([facility]) Vital Signs (Past 12 Hours) Vital Signs Temp Pulse Resp BP BP Pulse Ox 03/06/21 08:07 37.5 C 81 16 118/79 100 03/06/21 05:39 37.6 C H 03/06/21 03:58 39.1 C H 102 H 15 118/67 98 03/06/21 02:20 37.6 C H 102 H 16 103/66 99 03/06/21 01:56 38.5 C H 81 15 110/66 100 PG Care Time/CCT Total # of Minutes Spent Total Time Spent with Patient: Total time spent is greater than 50% in coordination of care (as documented) at patient's floor/unit and/or counseling patient: Coding Level of Care Code 07622 Subseq Hosp Care Lvl 2 Diagnoses Pyelonephritis N12 Abscess of left kidney N15.1
[2021-03-06] MEDS ORDERED: MAGNESIUM CITRATE 296 ML/BTL PO ONE (14:28)
[2021-03-06] MEDS ORDERED: oxyCODONE/ACETAMINOPHEN 5mg/325mg TAB PO PRN (14:28)
[2021-03-06] MEDS: FAMOTIDINE 20 MG in SYRINGE 3 ML IV SCH (15:50)
[2021-03-06] MEDS ORDERED: ONDANSETRON INJ 2 MG/ML 2 ML VIAL IV STA (18:08)
--- NOTE | 2021-03-06 18:46 | XRay Report ---
KUB HISTORY: Acute nausea and vomiting with constipation n/v, constipation, eval ileus/obstruction COMPARISON: CT abdomen and pelvis 03/04/2021 FINDINGS: Nonobstructive bowel gas pattern. Moderate fecal retention. No renal calculi. No ureteral calculi. No pneumoperitoneum or pneumatosis. No fracture. IMPRESSION: 1. Nonobstructive bowel gas pattern. 2. Moderate fecal retention. ACT 112: Negative or not required by law. The above report was generated using voice recognition software. It may contain grammatical, syntax o r spelling errors. Electronically signed by: Brady Chance M.D. 03/06/2021 6:44 PM
[2021-03-06] MEDS: PATIENT'S OWN ORAL CONTRACEPTIVE PO SCH (20:26)
[2021-03-06] MEDS: CEROVITE ADV FORMULA TAB PO SCH (20:26)
[2021-03-06] MEDS ORDERED: IRON SUCROSE 300 MG in SODIUM CHLORIDE 0.9% 250 ML IV ONE (21:00)
[2021-03-07] MEDS: LACTOBACILLUS ACIDOPHILUS 1 GM PACK PO SCH ×3 (08:13→17:31)
[2021-03-07] MEDS: cefTRIAXone SODIUM 1,000 MG in DEXTROSE 5% 50 ML IV SCH (08:14)
[2021-03-07] MEDS: POLYETHYLENE (MIRALAX) 17 GM PACK PO SCH (08:15)
[2021-03-07] MEDS: HEPARIN SOD 5,000 UNIT/0.5 ML VIAL SQ SCH ×2 (08:15→21:02)
[2021-03-07] MEDS: DOCUSATE SODIUM/SENNA 50/8.6MG TAB PO SCH (08:15)
[2021-03-07] MEDS: LACTATED RINGER'S 1,000 ML IV SCH ×2 (08:19→18:37)
--- NOTE | 2021-03-07 08:19 | Hospitalist Progress Note ---
Date of Service March 07, 2021 Assessment & Plan (1) Pyelonephritis: Plan: Recently treated with Macrobid as outpatient but PCP wanted to change abx, patient had been feeling better and declined. Records from [facility] reviewed on admission - Urinalysis was positive. Urine culture with no growth. CTA/P with cystitis and ascending urinary tract infection/pyelonephritis of the left kidney. Also, 13mm small abscess noted Temp 39.4C in ER procal 25.3 Urology consulted -- abscess <2cm and no perc intervention required. recs for extended course abx Cycling fevers expected w abscess per Urology Last fever AM 03/06 Blood cultures NGTD Urine cx negative --> Cipro PO to start tomorrow, however increased pain today/nausea and repeating CTA/P If worsens, may need to consider tx for drainage Also working on bowel regimen given constipation Tylenol used instead of toradol but will switch to tramadol given constipation and nausea --> Had been using ibuprofen 600mg x 6 times daily for past weeks for pain control (see below regarding anemia) Continue IVF, decreased rate as has been on 100cc/hr continuous since admission, 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 B12/folate wnl Venofer x 2 so far, 3rd for this evening GI CONSULTED given worsening iron deficiency over past several months, constipation, was started on Vitron C (working on bowels regimen, last BM Thursday. TSH checked last week outpt and normal 1.8) and ibuprofen use likely worsening anemia -> per GI, no emergent inpatient scope Protonix BID to continue at d/c celiac panel, hpylori stool antigen ordered GI recs for heme/onc consultation -- discussed with Dr. Almonte and does appear to be fairly straightforward IVANNA, but will discuss with him in AM Discussed with supervising MD and will add carafate as well given likely gastritis/possible ulcer --> Peripheral smear added labs --> no evidence for sickle/other, notes iron deficiency but will need repeat once stores replenished (3) Abscess of left kidney: Plan: Small at 1.3 cm. Ceftriaxone as above Repeating CT as above Continue to monitor --> if worsens will need to consider tx (4) Hypokalemia: Plan: Low on admission -- secondary to decreased PO intake -- oral replacement ordered Mag wnl Resolved -- continue to monitor (5) DVT prophylaxis: Plan: Heparin 5000 units subcutaneously every 12 hours while inpatient Ambulate as tolerated Plan: Continued inpatient stay on IV antibiotics, possible transition to PO CIpro tomorrow if CT shows improvement Venofer to be completed this evening GI consulted as above -- no inpatient scope planned at this time Started PPI BID, added Carafate Will discuss w heme-onc in AM does not have local insurance coverage outside of emergent hospitalizations and would not be able to be done outpatient. inpatient if possible/feasible based on recs by GI Admission and Anticipated Discharge Date Admission Date: March 05, 2021 Subjective Patient evaluated this afternoon. Was feeling ok this morning but still tired, weak, not much appetite. Urine light/clear yellow. Developed nausea and vomiting this afternoon despite Zofran and Phenergan was administered. Patient reports this has been effective but is sleepy from the medication. Will discuss w supervising MD about adding Carafate but this would alter exams and will hold off at this time, as patient admits to having been taking ibuprofen 200mg x 3 tablets routinely up to six times a day that was ok'd by her family doctor. Discussed labs from GI recs but no EGD at this time and will continue on Protonix BID. Initially reported nausea more issue than pain, however was having increased L sided pain and ddiscussed will repeat CT scan of abdomen to ensure abscess getting smaller. Fevers decreased, none today. No chest pain or shortness of breath reported. No further BM today. Review of Systems Review of Systems: All systems reviewed & are unremarkable except as noted in HPI & below Physical Exam Constitutional: sleeping upon entry to room, WD/WN, slightly uncomfortable, no acute distress Eyes: PERRL, conjunctivae normal, anicteric sclerae ENMT: external ear and nose normal, oropharynx normal Neck: trachea midline Respiratory: normal respiratory effort, lungs clear to auscultation Cardiovascular: RRR, no murmur, no edema Gastrointestinal (Abdomen): hypoactive BS, tender to palpation diffusely howev er worse on L side and flank, no gaurding or ridigity Musculoskeletal: no cyanosis or clubbing, extremities motor strength 5/5 Skin: warm, dry Neurologic: PERRL, EOMI, accommodation nl, no face palsy, no dysarthria Psychiatric: A+Ox3, euthymic affect Results & Data Results & Data ([facility]) Vital Signs (Past 12 Hours) Vital Signs Temp Pulse Resp BP Pulse Ox 03/07/21 07:14 37.5 C 80 16 109/70 100 03/06/21 22:09 37 C 89 16 111/74 100 03/06/21 20:55 36.9 C 80 14 102/77 100 03/06/21 20:30 37 C 95 H 14 101/65 100 Laboratory Results 03/07/21 03/07/21 03/07/21 Range/Units 10:45 08:43 08:43 WBC 5.88 (4.8-10.8) K/uL RBC 3.15 L (4.2-5.4) M/uL Hgb 8.1 L (12.0-16.0) g/dL Hct 25.5 L (37-47) % MCV 81.0 (80-100) fL MCH 25.7 (25-34) pg MCHC 31.8 L (32-36) g/dL RDW Std Deviation 52.4 H (36.4-46.3) fL RDW Coeff of Zeus 17.6 H (11.5-14.5) % Plt Count 462 H (130-400) K/uL MPV 8.7 (7.4-10.4) fL Sodium 138 (136-145) mmol/L Potassium 3.7 (3.5-5.1) mmol/L Chloride 107 (98-107) mmol/L Carbon Dioxide 25 (21-32) mmol/L Anion Gap 6.0 (3-11) BUN 4 L (7-18) mg/dl Creatinine 0.69 (0.6-1.2) mg/dl Est Cr Clr Drug Dosing 108.1 ml/min Est GFR ( Amer) 146.3 ml/min Est GFR (Non-Af Amer) 126.2 ml/min BUN/Creatinine Ratio 6.3 L (10-20) Glucose 86 (70-99) mg/dl Calcium 8.0 L (8.5-10.1) mg/dl Magnesium 1.8 (1.8-2.4) mg/dl Total Bilirubin 0.2 (0.2-1) mg/dl AST 142 H (15-37) U/L ALT 77 (12-78) U/L Alkaline Phosphatase 93 (45-117) U/L Total Protein 6.1 L (6.4-8.2) gm/dl Albumin 2.1 L (3.4-5.0) gm/dl Globulin 4.0 (2.5-4.0) gm/dl Albumin/Globulin Ratio 0.5 L (0.9-2) Alpha-Tocopherol B- and G-Tocopherol IgA Pending Tiss Transglutamin IgA Pending Celiac Disease Interp Pending 03/07/21 Range/Units 08:43 WBC (4.8-10.8) K/uL RBC (4.2-5.4) M/uL Hgb (12.0-16.0) g/dL Hct (37-47) % MCV (80-100) fL MCH (25-34) pg MCHC (32-36) g/dL RDW Std Deviation (36.4-46.3) fL RDW Coeff of Zeus (11.5-14.5) % Plt Count (130-400) K/uL MPV (7.4-10.4) fL Sodium (136-145) mmol/L Potassium (3.5-5.1) mmol/L Chloride (98-107) mmol/L Carbon Dioxide (21-32) mmol/L Anion Gap (3-11) BUN (7-18) mg/dl Creatinine (0.6-1.2) mg/dl Est Cr Clr Drug Dosing ml/min Est GFR ( Amer) ml/min Est GFR (Non-Af Amer) ml/min BUN/Creatinine Ratio (10-20) Glucose (70-99) mg/dl Calcium (8.5-10.1) mg/dl Magnesium (1.8-2.4) mg/dl Total Bilirubin (0.2-1) mg/dl AST (15-37) U/L ALT (12-78) U/L Alkaline Phosphatase (45-117) U/L Total Protein (6.4-8.2) gm/dl Albumin (3.4-5.0) gm/dl Globulin (2.5-4.0) gm/dl Albumin/Globulin Ratio (0.9-2) Alpha-Tocopherol Pending B- and G-Tocopherol Pending IgA Tiss Transglutamin IgA Celiac Disease Interp PG Care Time/CCT Total # of Minutes Spent Total Time Spent with Patient: Total time spent is greater than 50% in coordination of care (as documented) at patient's floor/unit and/or counseling patient: Coding Level of Care Code 95107 Subseq Hosp Care Lvl 3 Diagnoses Pyelonephritis N12 Anemia D64.9 Abscess of left kidney N15.1 Hypokalemia E87.6 DVT prophylaxis Z29.9
[2021-03-07] MEDS: FAMOTIDINE 20 MG in SYRINGE 3 ML IV SCH (08:26)
--- NOTE | 2021-03-07 08:35 | Urology Progress Note ---
Date of Service March 07, 2021 Assessment & Plan (1) Pyelonephritis: (2) Abscess of left kidney: Plan: 20 yo F admitted for fever, left pyelonephritis and small left renal abscess. - Pt afebrile overnight, nontoxic, lab work 03/06 - creatinine and WBC within normal limits - Might continue to have cyclical fevers given abscess - Pt subjectively improving slowly, also receiving IV iron during admission - BCx no growth x 48 hours, urine culture showed low counts of probable skin anupam - on IV Ceftriaxone - Abscess is less than 2 cm - no percutaneous surgical intervention required at present - Continue treatment with IV antibiotics, transition to extended course of PO antibiotics when medically stable for discharge - If she is not clinically improving, would repeat imaging to r/o enlarging abscess which would require transfer for drainage - Otherwise plan to repeat imaging in 1 month to ensure resolution, she wishes to arrange near her home - Continue supportive care and management per primary service Thank you for allowing us to participate in the acute care of Ms. Seth. Please reconsult us with additional questions, concerns or changes in patient status. Admission and Anticipated Discharge Date Admission Date: March 05, 2021 Subjective Patient resting in bed arouses easily to her name. No acute issues overnight. Generally feeling a little better today. Left flank discomfort improved. She had mag citrate yesterday, did have BM after, but notes nausea and emesis x 1 after administration. Continues to have low appetite, but no N/V at present. Voiding spontaneously, no dysuria or hematuria. Denies fever/chills overnight or at present. Received IV iron yesterday. No additional concerns today. Review of Systems Constitutional: as per Subjective / HPI Gastrointestinal: as per Subjective / HPI Genitourinary: as per Subjective / HPI Physical Exam Constitutional: well developed and well nourished; no acute distress and not ill appearing Respiratory: normal respiratory effort and able to speak in complete sentences; no respiratory distress and no labored breathing Gastrointestinal (Abdomen): Inspection/Auscultation: abdomen normal to inspection; abdomen not distended Neurologic: moves all extremities and awake Psychiatric: Orientation: alert, oriented x 3 and cooperative Genitourinary: + CVA tenderness (minimally tender to palpation on left flank) Results & Data ([facility]) Vital Signs (Past 12 Hours) Vital Signs Temp Pulse Resp BP Pulse Ox 03/07/21 07:14 37.5 C 80 16 109/70 100 03/06/21 22:09 37 C 89 16 111/74 100 03/06/21 20:55 36.9 C 80 14 102/77 100 PG Care Time/CCT Total # of Minutes Spent Total Time Spent with Patient: Total time spent is greater than 50% in coordination of care (as documented) at patient's floor/unit and/or counseling patient: Coding Level of Care Code 47674 Subseq Hosp Care Lvl 2 Diagnoses Pyelonephritis N12 Abscess of left kidney N15.1
[2021-03-07 09:20] LABS: Hematocrit (blood only) 25.5 % (37-47); Hemoglobin 8.1 g/dL (12.0-16.0); Mean Corpuscular Hemoglobin 25.7 pg (25-34); Mean Corpuscular Hgb Conc 31.8 g/dL (32-36); Mean Platelet Volume 8.7 fL (7.4-10.4); Platelet Count 462 K/uL (130-400); RDW Coefficient of Variation 17.6 % (11.5-14.5); RDW Standard Deviation 52.4 fL (36.4-46.3); Red Blood Count 3.15 M/uL (4.2-5.4); White Blood Count 5.88 K/uL (4.8-10.8)
[2021-03-07 09:38] LABS: Est GFR (African American) 146.3 ml/min; Est GFR (Non-African American) 126.2 ml/min; Potassium 3.7 mmol/L (3.5-5.1)
[2021-03-07 09:39] LABS: Albumin Level 2.1 gm/dl (3.4-5.0); BUN Creatinine Ratio 6.3 (10-20); Creatinine Clr Calc Pharmacy 108.1 ml/min; Magnesium 1.8 mg/dl (1.8-2.4)
[2021-03-07 09:41] LABS: Albumin Globulin Ratio 0.5 (0.9-2); Bilirubin,Total 0.2 mg/dl (0.2-1); Total Protein 6.1 gm/dl (6.4-8.2)
--- NOTE | 2021-03-07 10:20 | Gastrointestinal Consultation ---
Date of Consultation March 07, 2021 Assessment & Plan (1) Anemia: -Hematology consult recommended -Protonix 40 mg BID given history of NSAID use -Check Celiac panel & H Pylori stool antigen -Given overall clinical picture with renal abscess/pyelo and chronic anemia without obvious concerns for GI etiology, no plans for endoscopic evaluation at present. If hematology feels that there is no other explanation for her chronic anemia, would consider outpatient GI evaluation non-emergently as an outpatient when renal abscess/pyelo resolves. I am sympathetic to her insurance issues, but patient is not presently a candidate for inpatient GI evaluation. (2) Constipation: Patient notes this is a new issue since beginning antibiotic therapy -Advise Miralax 17 gm daily for now Supervising Physician Co-Signing Physician Notes Agree with PILY Restrepo as above Abd: Soft, NT, ND, +BS Recommend continuing Protonix 40 mg BID Await input from Hematology She has been chronically anemic many years Will need outpatient endoscopic workup following improvement from acute issues. History of Present Illness Reason for Consultation: Anemia, abdominal pain Attending Physician: Freeman Espinoza MD History of Present Illness Patient is a 20 yo female with a chronic history (she estimates >5 years) of anemia treated by her primary care provider with iron supplementation. GI has been consulted for further evaluation of her anemia. The patient is hospitalized primarily for pyelonephritis & a kidney abscess. She is intermittently febrile. She is being followed by urology. She currently is receiving IV antibiotic therapy. H/H presently 8.1/25.5. MCV 81.00, RBC 3.15, plt 462. Peripheral smear showing dilutional anemia accounting for the drop since her last H/H. Also noting iron deficiency. The patient denies a history of chronic GI complaints. She denies constipation, diarrhea, rectal bleeding, acid reflux, heartburn, or bloating ongoing chronically. She notes that she recently has had some constipation since being on antibiotic therapy. She notes yesterday she was notably constipated, strained to have a bowel movement, and had some bright red blood on the toilet tissue. She notes that this is not an ongoing problem. She reports improvement of her abdominal discomfort since emptying her bowels yesterday. CT abdomen/pelvis does not demonstrate any evidence of GI ab normalities. Allergies Allergy/AdvReac Type Severity Reaction Status Date / Time No Known Allergies Allergy Verified 03/04/21 10:13 Home Medications Medication Instructions Recorded Confirmed Type acetaminophen 500 mg tablet 1,000 mg PO Q8H PRN 04/23/20 03/04/21 History (Tylenol Extra Strength) drospirenone 3 mg-ethinyl 1 tab PO PM 03/04/21 03/04/21 History estradiol 0.02 mg tablet (KP (28)) ibuprofen 200 mg tablet (Motrin IB) 600 mg PO Q6H PRN 03/04/21 03/04/21 History iron,carbonyl 65 mg-vitamin C 125 1 tab PO PM 03/04/21 03/04/21 History mg tablet,delayed release (Vitron-C) Patient History Medical History No acute medical problems Surgical History No pertinent past surgical history Social History Smoking Status: Never smoker Second Hand Exposure: No; Do You Dip or Chew Tobacco: No; Tobacco Cessation Education Requested by Patient: No Hx Alcohol Use: Yes Hx Substance Use: No Preferred Language: Lithuanian Communication Ability: Effective Orthodontic Technician Assistant Required: No Beliefs That Will Affect Care: None Current Living Situation: Other Current Living Situation Comment: Roomate Other Information That Helps Us Care for You: No Feels Safe at Home: Yes Safety Concerns: Feels Safe At This Time Assistive Devices: None Review of Systems Constitutional: + fever (intermittent) and + chills Respiratory: no cough and no dyspnea Cardiovascular: no chest pain Gastrointestinal: + abdominal pain (improving) constipation resolved one episode of bright red blood on toilet tissue after straining to move bowels Musculoskeletal: no problem reported Psychiatric: no problem reported Hematologic / Lymphatic: no unexplained weight loss Physical Exam Constitutional: WD/WN, vitals as above Respiratory: normal respiratory effort Cardiovascular: RRR, no murmur, no edema Gastrointestinal (Abdomen): normal bowel sounds, soft, nontender, no hepatosplenomegaly Musculoskeletal: Head/Neck/Chest: normocephalic Psychiatric: Orientation: alert and oriented x 3 Results & Data ([place]) Vital Signs (Past 12 Hours) Vital Signs Temp Pulse Resp BP Pulse Ox 03/07/21 07:14 37.5 C 80 16 109/70 100 PG Care Time/CCT Total # of Minutes Spent Total Time Spent with Patient: Total time spent is greater than 50% in coordination of care (as documented) at patient's floor/unit and/or counseling patient: Coding Level of Care Code 58681 Inpt Consult Level 4 Diagnoses Anemia D64.9 Constipation K59.00
[2021-03-07] MEDS: PANTOprazole 40 MG TAB PO SCH ×2 (11:00→21:01)
[2021-03-07] MEDS: ONDANSETRON INJ 2 MG/ML 2 ML VIAL IV PRN (11:58)
[2021-03-07] MEDS ORDERED: PROMETHAZINE HCL 12.5 MG in SODIUM CHLORIDE 0.9% 50 ML IV PRN (14:36)
[2021-03-07] MEDS ORDERED: PROMETHAZINE HCL 6.25 MG in SODIUM CHLORIDE 0.9% 50 ML IV PRN (16:04)
[2021-03-07] MEDS: SUCRALFATE 1 GM/10 ML UDC PO SCH ×2 (17:34→21:01)
[2021-03-07] MEDS ORDERED: OPTIRAY 320 100ml IV ONE (18:47)
--- NOTE | 2021-03-07 19:38 | CT Scan Report ---
CT SCAN OF THE ABDOMEN AND PELVIS WITH IV CONTRAST CLINICAL HISTORY: Pyelonephritis and renal abscess. COMPARISON STUDY: Abdominal CT dated 03/04/2021. TECHNIQUE: Following the IV administration of 94 cc of Optiray 320, CT scan of the abdomen and pelvi s is performed from the lung bases to the proximal femora. Images are reviewed in the axial, sagittal , and coronal planes. IV contrast was administered without complication. A dose lowering technique wa s utilized adhering to the principles of ALARA. There is streak artifact from a metallic naval pierci ng. CT DOSE: 260.72 mGy.cm FINDINGS: Lung bases: The heart is normal in size and without pericardial effusion. The lung bases are clear. Liver: The contrast-enhanced liver is normal in size, contour, and attenuation. There is no intrahepa tic biliary ductal dilatation. The hepatic veins and portal veins are patent. Gallbladder: Unremarkable. Spleen: Normal in size and attenuation. Pancreas: Unremarkable. Adrenal glands: Unremarkable. Kidneys: The contrast enhanced kidneys are normal in size and without hydronephrosis. Mild urothelial thickening and enhancement is seen involving the left ureter. There is a striated nephrogram on the left. The right kidney enhances homogeneously. Again seen is a 14 mm low-attenuation focus in the ant erior interpolar left kidney on image #130 with surrounding edema. This likely represents a small bria al abscess. Developing phlegmonous change is suggested within the lateral interpolar left kidney on i mage #127 and within the lower pole of the left kidney on images #171 and #173. Abdominal vasculature: The abdominal aorta is normal in course and caliber. Bowel: There is no bowel obstruction. Moderate fecal retention is seen throughout the colon. The appe ndix is well-visualized and normal. Peritoneum: There is no intraperitoneal free air or abdominal ascites. There is a small fat-containin g umbilical hernia. A naval piercing is in place. Lymphadenopathy: None. Pelvic viscera: The bladder is distended and appears mildly thick-walled. There is pericystic strandi ng. The uterus and adnexa are normal as visualized noting bilateral ovarian follicles. A small volume of free fluid is seen in the cul-de-sac. Skeletal structures: No lytic or blastic lesions are seen. There are subtle foci of developing avascu lar necrosis within the femoral heads. IMPRESSION: 1. Again seen are findings of cystitis and ascending urinary tract infection/polynephritis of the lef t kidney. 2. There is a unchanged appearance of a 14 mm cortical hypodensity with surrounding edema in the ante rior interpolar left kidney. This likely represents a small abscess. 3. Additional foci of developing phlegmonous change are identified in the interpolar left kidney and the left lower pole. No organized fluid collection is seen at these sites at this time. 4. There are subtle changes of avascular necrosis present within both femoral heads. Orthopedic follo w-up is recommended. 5. A small volume of nonspecific free fluid is seen in the cul-de-sac. ACT 112: Negative or not required by law. Electronically signed by: Abdiel Murphy M.D. 03/07/2021 7:36 PM
[2021-03-07] MEDS ORDERED: IRON SUCROSE 300 MG in SODIUM CHLORIDE 0.9% 250 ML IV ONE (20:00)
[2021-03-07] MEDS ORDERED: INSULIN ASPART 100 UNITS/ML 3 ML PEN SC SCH (21:00)
[2021-03-07] MEDS: CEROVITE ADV FORMULA TAB PO SCH (21:01)
[2021-03-07] MEDS: PATIENT'S OWN ORAL CONTRACEPTIVE PO SCH (21:01)
[2021-03-07] MEDS: traMADol HCL 50 MG TABLET PO PRN (21:04)
[2021-03-08] MEDS ORDERED: CIPROFLOXACIN / D5W 400 MG/200 ML BAG IV SCH (01:00)
[2021-03-08] MEDS: POLYETHYLENE (MIRALAX) 17 GM PACK PO SCH (08:22)
[2021-03-08] MEDS: traMADol HCL 50 MG TABLET PO PRN (08:22)
[2021-03-08] MEDS: SUCRALFATE 1 GM/10 ML UDC PO SCH ×3 (08:22→18:07)
[2021-03-08] MEDS: HEPARIN SOD 5,000 UNIT/0.5 ML VIAL SQ SCH ×2 (08:24→20:03)
[2021-03-08] MEDS: LACTOBACILLUS ACIDOPHILUS 1 GM PACK PO SCH ×3 (08:24→17:28)
[2021-03-08] MEDS: PANTOprazole 40 MG TAB PO SCH ×2 (08:25→20:03)
[2021-03-08] MEDS: DOCUSATE SODIUM/SENNA 50/8.6MG TAB PO SCH (08:26)
[2021-03-08 08:55] LABS: Basophils # (auto) 0.01 K/uL (0-0.2); Basophils % (auto) 0.2 %; Eosinophils % (auto) 2.2 %; Hematocrit (blood only) 24.9 % (37-47); Hemoglobin 7.8 g/dL (12.0-16.0); Immature Granulocytes # (auto) 0.02 K/uL (0.00-0.02); Immature Granulocytes % (auto) 0.4 %; Lymphocytes # (auto) 1.66 K/uL (1.2-3.4); Lymphocytes % (auto) 36.8 %; Mean Corpuscular Hemoglobin 25.2 pg (25-34); Mean Corpuscular Hgb Conc 31.3 g/dL (32-36); Mean Corpuscular Volume 80.3 fL (80-100); Mean Platelet Volume 8.1 fL (7.4-10.4); Monocytes % (auto) 11.1 %; Neutrophils # (auto) 2.22 K/uL (1.4-6.5); Neutrophils % (auto) 49.3 %; Platelet Count 466 K/uL (130-400); RDW Coefficient of Variation 17.5 % (11.5-14.5); RDW Standard Deviation 50.9 fL (36.4-46.3); Reticulocyte % 0.8 % (0.5-2.0); Reticulocytes # 0.02 10^6/uL (0.02-0.10); White Blood Count 4.51 K/uL (4.8-10.8)
[2021-03-08] MEDS ORDERED: POLYETHYLENE (MIRALAX) 17 GM PACK PO SCH (09:00)
--- NOTE | 2021-03-08 09:24 | Hospitalist Progress Note ---
Date of Service March 08, 2021 Assessment & Plan (1) Pyelonephritis: Plan: Recently treated with Macrobid as outpatient but PCP wanted to change abx, patient had been feeling better and declined. Records from [facility] reviewed on admission - Urinalysis was positive. Urine culture with no growth. CTA/P with cystitis and ascending urinary tract infection/pyelonephritis of the left kidney. Also, 13mm small abscess noted Temp 39.4C in ER procal 25.3 --> 3.67 Urology consulted -- abscess <2cm and no perc intervention required. recs for extended course abx Cycling fevers expected w abscess per Urology Last fever AM 03/06 38.9C Blood cultures NGTD Switched to Ertapenem after discussion with ID for now given reported worsening. -- repeat CT with unchanged size of abscess, possible other smaller abscess forming ?Considering PO fluoroquinolone per discussion with official ID consult occurred this afternoon but awaiting sensitivities from prior cx 02/21 (although was reported negative) Continue IVF Repeat CT 1 month for resolution -- may need done at home given insurance issues Continue to monitor clinically -- if develops further fevers or worsens clinically, transfer rec by Urology N/V today with resultant headache/migraine (mother family hx, none for her personally). No meningeal signs. (2) Anemia: Plan: hx of, worsening over past year with "unknown cause" however does have mainly poultry for diet, not much iron in veggies. Educated to increase intake On Vitron C DIRECTOR FOOD AND BEVERAGE -- may need BID but will need good bowel regimen as well given chronic constipation ALSO TAKING 600MG IBUPROFEN 6X/DAILY FOR SEVERAL WEEKS PER PCP d/c toradol as ordered on admission --> episode of melena night 03/06, 2nd to constipation but she reports this is increased that her usual MCV low normal and checked iron stores --> IRON LOW AT 10, Trans % sat 2. B12/folate wnl Venofer x 3 Peripheral smear no evidence for sickle/other, notes iron deficiency but will need repeat once stores replenished Hgb electrophoresis pending GI CONSULTED given worsening iron deficiency over past several months, constipation, was started on Vitron C (working on bowels regimen) TSH checked last week outpt and normal 1.8) and ibuprofen use likely worsening anemia -> per GI, no emergent inpatient scope Protonix BID to continue at d/c celiac panel, h pylori stool antigen ordered Carafate added 03/07 Heme-onc consulted --felt iron supplementation causing most of her issues, give IV venofer (got 3rd dose 300mg last evening) Can follow up outpatient (again, insurance issues) Hgb 7.8 however has been on continuous IVF, suspect dilutional and holding off on transfusion Repeat iron added by heme-onc with ferritin 293, iron 293, TIBC 325. No sob/cp reported. 98% on RA. Continue to monitor. Vit D level low 7.7 --> 50,000 IU weekly. CBC in AM (3) Constipation: Plan: BM 3 days ago, nothing since Dulcolax tonight Imaging with persistent constipation, likely worsened prior to admission given iron supplementation (4) Abscess of left kidney: Plan: Small at 1.[address] evening 03/07 with unchanged size, but possible additional abscess Ceftriaxone as above --> was going to de-escalate to Cipro as ceftriaxone may be worsening anemia as well but discussed with ID this morning and placed on Ertapenem Official ID on consult as above pending currently, Dr Parker Continue to monitor --> if worsens will need to consider tx for IR (5) Avascular necrosis of bones of both hips: Plan: noted on most recent CT given AA female, concerns for SS -- Peripheral smear earlier on stay without evidence of sickling. LDH wnl, Retic count not elevated Hgb electrophoresis pending (did de-escalate from rocephin to cipro initially before switching to ertapenem for concerns if SS underlying could potentially worsen on that agent per UTD) Hematology consulted this morning -- IVANNA and recs for Venofer replacement and outpt follow up Ortho consulted --> no pain. Pt to f/u with ortho in future if develops hip pain (6) Hypokalemia: Plan: Low on admission -- secondary to decreased PO intake -- oral replacement ordered Mag wnl Resolved -- continue to monitor (7) DVT prophylaxis: Plan: Heparin 5000 units subcutaneously every 12 hours while inpatient Ambulate as tolerated Plan: Official ID consultation pending Admission and Anticipated Discharge Date Admission Date: March 05, 2021 Subjective patient evaluated this afternoon got tramadol x 2, no further BM overnight and with n/v this morning despite Zofran. Phenergan sedating but decreased dose and discussed using that next time instead green emesis reported x 1 now with migraine/headache no personal history of such but mother w migraines no neck pain/meningeal signs/pain with flexion of knees not much of appetite has remained afebrile discussed CT findings and possible small other abscess and recs to remain on IV abx and switch to Ertapenem by ID provider CM looking to see if insurance cover abx therapy as deemed necessary, otherwise will rec for tx closer to home patient agreeable if necessary but would like to see if current plan effective Getting dose of Benadryl and low dose Dilaudid to see if effective in control. To update mother Tamela once insurance information received to see what is possible Review of Systems Review of Systems: All systems reviewed & are unremarkable except as noted in HPI & below Physical Exam Constitutional: sleeping upon entry to room, WD/WN, slightly uncomfortable, no acute distress, fatigued, nauseous, lights out and blinds closed Eyes: pupils equal and reactive, photosensitivity ENMT: external ear and nose normal, oropharynx normal Neck: trachea midline no neck pain with flexion or extension Respiratory: normal respiratory effort, lungs clear to auscultation Cardiovascular: RRR, no murmur, no edema Gastrointestinal (Abdomen): thin, hypoactive BS, tender to palpation L flank Musculoskeletal: no hip pain with ROM no pain reported with flexion/extension of the knees no gait abnormality no muscle tenderness calves non-tender equal strength bilaterally Skin: warm, dry Neurologic: PERRL, EOMI, accommodation nl, no face palsy, no dysarthria Psychiatric: Orientation: alert and oriented x 3 Results & Data Results & Data ([facility]) Vital Signs (Past 12 Hours) Vital Signs Temp Pulse Resp BP Pulse Ox 03/08/21 07:15 36.9 C 88 16 107/67 99 03/07/21 22:16 36.7 C 73 14 101/61 100 Laboratory Results 03/08/21 03/08/21 03/08/21 Range/Units 15:38 10:25 08:30 WBC (4.8-10.8) K/uL RBC (4.2-5.4) M/uL Hgb (12.0-16.0) g/dL Hct (37-47) % MCV (80-100) fL MCH (25-34) pg MCHC (32-36) g/dL RDW Std Deviation (36.4-46.3) fL RDW Coeff of Zeus (11.5-14.5) % Plt Count (130-400) K/uL MPV (7.4-10.4) fL Immature Gran % (Auto) % Neut % (Auto) % Lymph % (Auto) % [place] % (Auto) % Eos % (Auto) % Baso % (Auto) % Reticulocyte % (Auto) (0.5-2.0) % Neut # (Auto) (1.4-6.5) K/uL Lymph # (Auto) (1.2-3.4) K/uL [place] # (Auto) (0.11-0.59) K/uL Eos # (Auto) (0-0.5) K/uL Baso # (Auto) (0-0.2) K/uL Reticulocyte # (0.02-0.10) 10^6/uL Immature Gran # (Auto) (0.00-0.02) K/uL Hemoglobin A Pending Hemoglobin A2 Pending Hemoglobin C Pending Hemoglobin E Pending Hemoglobin F () Pending Hemoglobin S Pending Variant Hemoglobin Pending Hemoglobin Variant 2 Pending Hgb ELP Interp Pending Hemoglobinopathy Red Blood Count Pending Hemoglobinopathy Hct Pending Hemoglobinopathy Hgb Pending Hemoglobinopathy MCV Pending Hemoglobinopathy MCH Pending Hemoglobinopathy RDW Pending Sodium 140 (136-145) mmol/L Potassium 3.7 (3.5-5.1) mmol/L Chloride 106 (98-107) mmol/L Carbon Dioxide 28 (21-32) mmol/L Anion Gap 6.0 (3-11) BUN 4 L (7-18) mg/dl Creatinine 0.77 (0.6-1.2) mg/dl Est Cr Clr Drug Dosing 96.8 ml/min Est GFR ( Amer) 129.7 ml/min Est GFR (Non-Af Amer) 111.9 ml/min BUN/Creatinine Ratio 5.2 L (10-20) Glucose 87 (70-99) mg/dl Calcium 8.2 L (8.5-10.1) mg/dl Iron (35-150) mcg/dl TIBC (250-450) mcg/dl Ferritin (8-388) ng/ml Total Bilirubin (0.2-1) mg/dl Direct Bilirubin (0-0.2) mg/dl AST (15-37) U/L ALT (12-78) U/L Alkaline Phosphatase (45-117) U/L Lactate Dehydrogenase (84-246) U/L Total Creatine Kinase (26-192) U/L Total Protein (6.4-8.2) gm/dl Albumin (3.4-5.0) gm/dl 25-OH Vitamin D Total (20-100) ng/ml Procalcitonin (0-0.5) ng/ml PTH Intact 29.4 (18.4-80.1) pg/ml 03/08/21 03/08/21 03/08/21 Range/Units 08:30 08:30 08:30 WBC (4.8-10.8) K/uL RBC (4.2-5.4) M/uL Hgb (12.0-16.0) g/dL Hct (37-47) % MCV (80-100) fL MCH (25-34) pg MCHC (32-36) g/dL RDW Std Deviation (36.4-46.3) fL RDW Coeff of Zeus (11.5-14.5) % Plt Count (130-400) K/uL MPV (7.4-10.4) fL Immature Gran % (Auto) % Neut % (Auto) % Lymph % (Auto) % [place] % (Auto) % Eos % (Auto) % Baso % (Auto) % Reticulocyte % (Auto) (0.5-2.0) % Neut # (Auto) (1.4-6.5) K/uL Lymph # (Auto) (1.2-3.4) K/uL [place] # (Auto) (0.11-0.59) K/uL Eos # (Auto) (0-0.5) K/uL Baso # (Auto) (0-0.2) K/uL Reticulocyte # (0.02-0.10) 10^6/uL Immature Gran # (Auto) (0.00-0.02) K/uL Hemoglobin A Hemoglobin A2 Hemoglobin C Hemoglobin E Hemoglobin F () Hemoglobin S Variant Hemoglobin Hemoglobin Variant 2 Hgb ELP Interp Hemoglobinopathy Red Blood Count Hemoglobinopathy Hct Hemoglobinopathy Hgb Hemoglobinopathy MCV Hemoglobinopathy MCH Hemoglobinopathy RDW Sodium (136-145) mmol/L Potassium (3.5-5.1) mmol/L Chloride (98-107) mmol/L Carbon Dioxide (21-32) mmol/L Anion Gap (3-11) BUN (7-18) mg/dl Creatinine (0.6-1.2) mg/dl Est Cr Clr Drug Dosing ml/min Est GFR ( Amer) ml/min Est GFR (Non-Af Amer) ml/min BUN/Creatinine Ratio (10-20) Glucose (70-99) mg/dl Calcium (8.5-10.1) mg/dl Iron 293 H (35-150) mcg/dl TIBC 325 (250-450) mcg/dl Ferritin 786.2 H (8-388) ng/ml Total Bilirubin (0.2-1) mg/dl Direct Bilirubin (0-0.2) mg/dl AST (15-37) U/L ALT (12-78) U/L Alkaline Phosphatase (45-117) U/L Lactate Dehydrogenase 162 (84-246) U/L Total Creatine Kinase (26-192) U/L Total Protein (6.4-8.2) gm/dl Albumin (3.4-5.0) gm/dl 25-OH Vitamin D Total 7.7 L (20-100) ng/ml Procalcitonin (0-0.5) ng/ml PTH Intact (18.4-80.1) pg/ml 03/08/21 03/08/21 03/08/21 Range/Units 08:30 08:30 08:30 WBC 4.51 L (4.8-10.8) K/uL RBC 3.10 L (4.2-5.4) M/uL Hgb 7.8 L (12.0-16.0) g/dL Hct 24.9 L (37-47) % MCV 80.3 (80-100) fL MCH 25.2 (25-34) pg MCHC 31.3 L (32-36) g/dL RDW Std Deviation 50.9 H (36.4-46.3) fL RDW Coeff of Zeus 17.5 H (11.5-14.5) % Plt Count 466 H (130-400) K/uL MPV 8.1 (7.4-10.4) fL Immature Gran % (Auto) 0.4 % Neut % (Auto) 49.3 % Lymph % (Auto) 36.8 % [place] % (Auto) 11.1 % Eos % (Auto) 2.2 % Baso % (Auto) 0.2 % Reticulocyte % (Auto) 0.8 (0.5-2.0) % Neut # (Auto) 2.22 (1.4-6.5) K/uL Lymph # (Auto) 1.66 (1.2-3.4) K/uL [place] # (Auto) 0.50 (0.11-0.59) K/uL Eos # (Auto) 0.10 (0-0.5) K/uL Baso # (Auto) 0.01 (0-0.2) K/uL Reticulocyte # 0.02 (0.02-0.10) 10^6/uL Immature Gran # (Auto) 0.02 (0.00-0.02) K/uL Hemoglobin A Hemoglobin A2 Hemoglobin C Hemoglobin E Hemoglobin F () Hemoglobin S Variant Hemoglobin Hemoglobin Variant 2 Hgb ELP Interp Hemoglobinopathy Red Blood Count Hemoglobinopathy Hct Hemoglobinopathy Hgb Hemoglobinopathy MCV Hemoglobinopathy MCH Hemoglobinopathy RDW Sodium (136-145) mmol/L Potassium (3.5-5.1) mmol/L Chloride (98-107) mmol/L Carbon Dioxide (21-32) mmol/L Anion Gap (3-11) BUN (7-18) mg/dl Creatinine (0.6-1.2) mg/dl Est Cr Clr Drug Dosing ml/min Est GFR ( Amer) ml/min Est GFR (Non-Af Amer) ml/min BUN/Creatinine Ratio (10-20) Glucose (70-99) mg/dl Calcium (8.5-10.1) mg/dl Iron (35-150) mcg/dl TIBC (250-450) mcg/dl Ferritin (8-388) ng/ml Total Bilirubin 0.2 (0.2-1) mg/dl Direct Bilirubin < 0.1 (0-0.2) mg/dl AST 97 H (15-37) U/L ALT 91 H (12-78) U/L Alkaline Phosphatase 95 (45-117) U/L Lactate Dehydrogenase (84-246) U/L Total Creatine Kinase 16 L (26-192) U/L Total Protein 6.2 L (6.4-8.2) gm/dl Albumin 2.2 L (3.4-5.0) gm/dl 25-OH Vitamin D Total (20-100) ng/ml Procalcitonin 3.67 H (0-0.5) ng/ml PTH Intact (18.4-80.1) pg/ml Diagnostic Findings Abdomen/Pelvis CT 03/07/21 16:03 CT SCAN OF THE ABDOMEN AND PELVIS WITH IV CONTRAST CLINICAL HISTORY: Pyelonephritis and renal abscess. COMPARISON STUDY: Abdominal CT dated 03/04/2021. TECHNIQUE: Following the IV administration of 94 cc of Optiray 320, CT scan of the abdomen and pelvis is performed from the lung bases to the proximal femora. Images are reviewed in the axial, sagittal, and coronal planes. IV contrast was administered without complication. A dose lowering technique was utilized adhering to the principles of ALARA. There is streak artifact from a metallic naval piercing. CT DOSE: 260.72 mGy.cm FINDINGS: Lung bases: The heart is normal in size and without pericardial effusion. The lung bases are clear. Liver: The contrast-enhanced liver is normal in size, contour, and attenuation. There is no intrahepatic biliary ductal dilatation. The hepatic veins and portal veins are patent. Gallbladder: Unremarkable. Spleen: Normal in size and attenuation. Pancreas: Unremarkable. Adrenal glands: Unremarkable. Kidneys: The contrast enhanced kidneys are normal in size and without hydronephrosis. Mild urothelial thickening and enhancement is seen involving the left ureter. There is a striated nephrogram on the left. The right kidney enhances homogeneously. Again seen is a 14 mm low-attenuation focus in the anterior interpolar left kidney on image #130 with surrounding edema. This likely represents a small renal abscess. Developing phlegmonous change is suggested within the lateral interpolar left kidney on image #127 and within the lower pole of the left kidney on images #171 and #173. Abdominal vasculature: The abdominal aorta is normal in course and caliber. Bowel: There is no bowel obstruction. Moderate fecal retention is seen throughout the colon. The appendix is well-visualized and normal. Peritoneum: There is no intraperitoneal free air or abdominal ascites. There is a small fat-containing umbilical hernia. A naval piercing is in place. Lymphadenopathy: None. Pelvic viscera: The bladder is distended and appears mildly thick-walled. There is pericystic stranding. The uterus and adnexa are normal as visualized noting bilateral ovarian follicles. A small volume of free fluid is seen in the cul-de-sac. Skeletal structures: No lytic or blastic lesions are seen. There are subtle foci of developing avascular necrosis within the femoral heads. IMPRESSION: 1. Again seen are findings of cystitis and ascending urinary tract infection/polynephritis of the left kidney. 2. There is a unchanged appearance of a 14 mm cortical hypodensity with surrounding edema in the anterior interpolar left kidney. This likely represents a small abscess. 3. Additional foci of developing phlegmonous change are identified in the interpolar left kidney and the left lower pole. No organized fluid collection is seen at these sites at this time. 4. There are subtle changes of avascular necrosis present within both femoral heads. Orthopedic follow-up is recommended. 5. A small volume of nonspecific free fluid is seen in the cul-de-sac. ACT 112: Negative or not required by law. Electronically signed by: Abdiel Murphy M.D. 03/07/2021 7:36 PM PG Care Time/CCT Total # of Minutes Spent Total Time Spent with Patient: Total time spent is greater than 50% in coordination of care (as documented) at patient's floor/unit and/or counseling patient: Coding Level of Care Code 90668 Subseq Hosp Care Lvl 3 Diagnoses Pyelonephritis N12 Anemia D64.9 Abscess of left kidney N15.1 Hypokalemia E87.6 DVT prophylaxis Z29.9 Avascular necrosis of bones of both hips M87.051; M87.052 Constipation K59.00
[2021-03-08 09:27] LABS: Ferritin 786.2 ng/ml (8-388)
[2021-03-08 09:32] LABS: Alanine Aminotransferase 91 U/L (12-78); Albumin Level 2.2 gm/dl (3.4-5.0); Alkaline Phosphatase 95 U/L (45-117); Aspartate Aminotransferase 97 U/L (15-37); Bilirubin Direct < 0.1 mg/dl (0-0.2); Bilirubin,Total 0.2 mg/dl (0.2-1); Creatine Kinase 16 U/L (26-192); Total Protein 6.2 gm/dl (6.4-8.2)
[2021-03-08 09:46] LABS: BUN Creatinine Ratio 5.2 (10-20); Calcium 8.2 mg/dl (8.5-10.1); Creatinine Clr Calc Pharmacy 96.8 ml/min; Est GFR (African American) 129.7 ml/min; Est GFR (Non-African American) 111.9 ml/min; Potassium 3.7 mmol/L (3.5-5.1)
[2021-03-08] MEDS ORDERED: ERGOCALCIFEROL 50,000 UNITS 1250 MCG CAP PO SCH (10:15)
--- NOTE | 2021-03-08 10:45 | Consultation Report ---
HEMATOLOGY CONSULTATION. DATE OF CONSULT: 03/08/2021 REASON FOR CONSULTATION: Refractory iron deficiency anemia. HISTORY OF PRESENT ILLNESS: The patient is a very pleasant 20-year-old -[place]ian female with a past medical history of occasional urinary tract infection. 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 Medica l records from [facility] where she resides in the [facility] revealed a positive urina lysis, but no positive cultures. Patient had been feeling better and subsequently return to our lee on to resume college education. She presented to the Emergency Room at [facility] on 03/04/2021 where radiographic workup was undertaken, CT scan of the abdomen and pelvis revealing c ystitis in the setting of urinary tract pyelonephritis of the left kidney. There was also a 13 mm in determinate cortical hypodensity with surrounding edema in the anterior interpolar left kidney, thoug ht to be a simple cyst, but also could represent abscess. That said, I inquired about the patient's history of anemia and she states over the past 2 to 3 years, she has struggled with anemia, I suspect due to menorrhagia. She describes her menstrual flow is being "all over the board." She recently st arted oral iron; however, has subsequently developed abdominal crampy like pain, which may or may not be attributable to oral iron supplementation. I have been asked to render opinion regarding this pa martir's iron deficient state and appropriate modality to correct the deficiency. PAST MEDICAL HISTORY: Essentially negative except for her urinary tract issues mentioned above. PAST SURGICAL HISTORY: Negative. CURRENT MEDICATIONS: Include acetaminophen 1000 mg p.o. q. 8 hours p.r.n., control pill, ibupr ofen 600 mg p.o. q. 6 hours p.r.n. and iron supplementation 1 tablet p.o. q. daily. ALLERGIES: No known drug allergies. 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 S he is a nonsmoker and nondrinker. FAMILY HISTORY: Noncontributory. REVIEW OF SYSTEMS: CONSTITUTIONAL: Positive for fatigue, intermittent fever and abdominal pain. SKIN: No rashes or lesions otherwise. HEENT: Denies headaches, lightheadedness or dizziness. No acute visual or hearing deficits. No sin us symptoms, sore throat or dysphagia. LYMPH: No history of lymphoproliferative disease. CARDIAC: No angina or palpitations. No history of coronary artery disease. PULMONARY: No history of COPD. She is not short of breath, dyspneic or orthopneic. No cough or hem optysis. GASTROINTESTINAL: Diffuse abdominal pain, no diarrhea or constipation reported. No hematochezia or m sajan stools at present. GENITOURINARY: Positive for menorrhagia. Positive for abnormal urinalysis. MUSCULOSKELETAL: No arthralgias or myalgias. No focal muscle weakness. ENDOCRINE: Negative for diabetes or thyroid disease. NEUROLOGIC: Negative for seizure, stroke or migraine headache. HEMATOLOGIC: As per HPI. PHYSICAL EXAMINATION: GENERAL: Very pleasant 20-year-old -[place] female in no acute distress. VITAL SIGNS: Temperature 36.9, pulse 88, respiratory rate 16, blood pressure 107/67. SKIN: Warm, dry, noncyanotic without petechia, rash or ecchymosis. HEENT: Head atraumatic, normocephalic. Eyes: PERRLA. EOMI. Sclerae are nonicteric. No conjunctiv al injection. Nares are patent without rhinorrhea or discharge. Throat clear. Tongue midline. Muc ous membranes are moist. NECK: Supple without JVD or thyromegaly. LYMPH: No cervical, supraclavicular, axillary or inguinal palpable nodes. HEART: Regular rate and rhythm. No clicks, rubs, murmurs or gallops. LUNGS: Clear to auscultation bilaterally. ABDOMEN: Soft, nontender, nondistended, without palpable hepatosplenomegaly. EXTREMITIES: No calf tenderness or swelling. No clubbing, cyanosis or edema. Strength and pulses a re equal in all 4 quadrants. NEUROLOGICALLY: She is awake, alert and oriented x3. LABORATORY DATA: WBC count 5880, hemoglobin 8.1, platelet count 462,000. Iron studies, serum iron o f 10, transferrin percentage. Ferritin 49.8, TIBC 356. IMPRESSION: 1. Pyelonephritis. 2. Refractory iron deficiency anemia. 3. Abscess, left kidney. 4. Hypokalemia. PLAN: I was asked to see this very pleasant young lady at bedside this morning. Clearly from her hi story, she has had some urinary tract issues and presently has an underlying pyelonephritis, possible abscess or cyst on the kidney. Patient relates over the past 3 years having issues with iron, alaina vizcaino because of fluctuant menstrual flow. She recently started oral iron therapy, but suspect her GI symptoms are related and thus should be discontinued. That said, we would advocate iron sucrose 300 mg IV. I spoke to the managing hospitalist who informed me the patient has already received three suc h doses and therefore, we will hold off and allow her to recover from pyelonephritis. At some point, I would like to see her back in the office, perhaps a month or 2, at which time we will check periph eral blood counts and iron studies. I have nothing further to add at this time. If there are furthe r questions and concerns, feel free to contact me at any time. Job ID: [id number]
[2021-03-08] MEDS: ACETAMINOPHEN 500 MG TAB PO PRN (11:16)
--- NOTE | 2021-03-08 11:34 | Urology Progress Note ---
Date of Service March 08, 2021 Assessment & Plan (1) Pyelonephritis: (2) Abscess of left kidney: Plan: 20 yo F admitted for fever, left pyelonephritis and small left renal abscess. - Plan of care reviewed with Dr. Jimenez, urologist operator electronic warfare - Pt afebrile overnight, nontoxic, lab work reviewed - creatinine 0.77, WBC 4.51, Hgb 7.8 - Pt subjectively improving slowly, also receiving IV iron during admission for anemia - BCx no growth x 48 hours, urine culture showed low counts of probable skin anupam - Repeat CTAP showed previous abscess stable with possibly another small abscess forming - Recommend continue IV antibiotics - Recommend Infectious disease consult for evaluation and management - No percutaneous surgical intervention required at present - Recommend transfer for percutaneous intervention with IR if continuing with fevers or clinically worsens - Recommend repeat imaging in about 1 month to ensure improvement - Continue supportive care and management per primary service Thank you for allowing us to participate in the acute care of Ms. Seth. Please reconsult us with additional questions, concerns or changes in patient status. Admission and Anticipated Discharge Date Admission Date: March 05, 2021 Subjective Urology service asked by hospitalist service to evaluate patient again today. She had a repeat CTAP w/ IV con. Reviewed CT imaging personally and with Dr. Jimenez. Findings c/w cystitis and left pyelonephritis are again noted. Unchanged appearance of a 14 mm cortical hypodensity with surrounding edema in the anterior interpolar left kidney. An additional foci of developing phlegmonous change noted in the interpolar left kidney and the left lower pole, possibly another small/developing abscess. Patient seen and examined at bedside. She is awake and resting in bed. Continues to report low appetite and fatigue, but overall feeling some improvement today. Mild left flank discomfort. Voiding, no dysuria or hematuria. No nausea or vomiting. No fever or chills. She was switched from IV Ceftriaxone to Ertapenem, received a dose of IV Cipro today. She is also receiving IV iron treatment for anemia. Review of Systems Constitutional: as per Subjective / HPI Gastrointestinal: as per Subjective / HPI Genitourinary: as per Subjective / HPI Physical Exam Constitutional: well developed and well nourished; no acute distress and not ill appearing Respiratory: normal respiratory effort and able to speak in complete sentences; no respiratory distress and no labored breathing Gastrointestinal (Abdomen): Inspection/Auscultation: abdomen normal to inspection; abdomen not distended Neurologic: moves all extremities and awake Psychiatric: Orientation: alert, oriented x 3 and cooperative Results & Data ([facility]) Vital Signs (Past 12 Hours) Vital Signs Temp Pulse Resp BP Pulse Ox 03/08/21 07:15 36.9 C 88 16 107/67 99 PG Care Time/CCT Total # of Minutes Spent Total Time Spent with Patient: Total time spent is greater than 50% in coordination of care (as documented) at patient's floor/unit and/or counseling patient: Coding Level of Care Code 66769 Subseq Hosp Care Lvl 2 Diagnoses Pyelonephritis N12 Abscess of left kidney N15.1
[2021-03-08] MEDS ORDERED: ERTAPENEM SODIUM 1,000 MG in SODIUM CHLORIDE 0.9% 50 ML IV SCH (13:00)
[2021-03-08] MEDS: LACTATED RINGER'S 1,000 ML IV SCH (13:06)
[2021-03-08] MEDS: ONDANSETRON INJ 2 MG/ML 2 ML VIAL IV PRN (13:52)
[2021-03-08] MEDS ORDERED: diphenhydrAMINE 50 MG/ML VIAL IV STA (14:07)
[2021-03-08] MEDS ORDERED: HYDROmorphone INJ 0.5 MG/0.5 ML SYR IV STA (14:18)
--- NOTE | 2021-03-08 14:22 | Orthopedic Consultation ---
Date of Service March 08, 2021 Assessment & Plan (1) Avascular necrosis of bones of both hips: She is not having any pain in her hips. Oftentimes if we see avascular necrosis in a young -[place] it is also in the setting of a sickle cell anemia. However, she is not having any pain in either hip. There is no collapse of the femoral head. She can return to full activities without restrictions. She only needs to follow-up with an orthopedist if she begins having pain in her hips. At this point I will sign off. If you have any questions please feel free to contact me at [phone]. History of Present Illness Reason for Consultation: Avascular necrosis bilateral hips. Requesting Physician: . Attending Physician: Freeman Espinoza MD Jo Ann is a pleasant 20-year-old female who is been admitted for urinary tract infections and pyelonephritis of the left kidney. She also has a history of anemia. I did not see anything in her history or her chart regarding testing for sickle cell anemia. She has had CAT scans of her chest abdomen and pelvis. 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 Orthopedics was consulted to evaluate and treat. She has never had any history of hip pain. She does not have any history of back pain.. Allergies Allergy/AdvReac Type Severity Reaction Status Date / Time No Known Allergies Allergy Verified 03/04/21 10:13 Home Medications Medication Instructions Recorded Confirmed Type acetaminophen 500 mg tablet 1,000 mg PO Q8H PRN 04/23/20 03/04/21 History (Tylenol Extra Strength) drospirenone 3 mg-ethinyl 1 tab PO PM 03/04/21 03/04/21 History estradiol 0.02 mg tablet (KP (28)) ibuprofen 200 mg tablet (Motrin IB) 600 mg PO Q6H PRN 03/04/21 03/04/21 History iron,carbonyl 65 mg-vitamin C 125 1 tab PO PM 03/04/21 03/04/21 History mg tablet,delayed release (Vitron-C) Past Med/Surg History Medical History No acute medical problems Surgical History No pertinent past surgical history Social History Smoking Status: Never smoker Second Hand Exposure: No; Do You Dip or Chew Tobacco: No; Tobacco Cessation Education Requested by Patient: No Hx Alcohol Use: Yes Hx Substance Use: No Preferred Language: Estonian Communication Ability: Effective Principal Associate Required: No Beliefs That Will Affect Care: None Current Living Situation: Other Current Living Situation Comment: Roomate Other Information That Helps Us Care for You: No Feels Safe at Home: Yes Safety Concerns: Feels Safe At This Time Assistive Devices: None Review of Systems All systems reviewed & are unremarkable except as noted in HPI & below. Physical Exam On physical examination of both hips, she has no pain with range of motion. She has full range of motion of her hips. No pain with forced internal or external rotation. She has no back pain. Her hip exam is benign.. Constitutional WD/WN, vitals as above Eyes PERRL, conjunctivae normal, anicteric sclerae ENMT external ear and nose normal, oropharynx normal Neck trachea midline, no thyromegaly Respiratory normal respiratory effort Cardiovascular RRR, no murmur, no edema Gastrointestinal (Abdomen) normal bowel sounds, soft, nontender, no hepatosplenomegaly Psychiatric A+Ox3, euthymic affect Results & Data Results & Data Laboratory Results . Diagnostic Findings The CT scan of the pelvis was reviewed. Is just an axillary CT scan. I did see 2 areas of avascular necrosis of the femoral heads. There is 1 area need for each hip. There is no collapse of the femoral head.. PG Care Time/CCT Total # of Minutes Spent Total Time Spent with Patient: Total time spent is greater than 50% in coordination of care (as documented) at patient's floor/unit and/or counseling patient: Coding Level of Care Code 94797 Inpt Consult Level 4 Diagnoses Avascular necrosis of bones of both hips M87.051; M87.052
[2021-03-08] MEDS ORDERED: ondansetron HCL 8 MG in DEXTROSE 5% 50 ML IV PRN (17:15)
[2021-03-08] MEDS ORDERED: MAGNESIUM SULFATE / D5W 1 GM/100 ML BAG IV ONE (18:00)
[2021-03-08 18:40] LABS: Appearance Urine Clear (Clear); Bilirubin Urine Negative (Negative); Blood Urine Negative (Negative); Color Urine Yellow; Glucose Urine UA Negative (Negative); Ketones Urine Negative (Negative); Leukocyte Esterase Urine Negative (Negative); Nitrite Urine Negative (Negative); Protein Urine Negative (Negative); Specific Gravity Urine 1.006 (1.000-1.030); Urobilinogen Urine Negative (Negative); pH Urine 8.5 (4.5-7.5)
[2021-03-08] MEDS: PATIENT'S OWN ORAL CONTRACEPTIVE PO SCH (20:03)
[2021-03-08] MEDS: bisacodyL 5 MG TABEC PO SCH (20:03)
[2021-03-08] MEDS: ERTAPENEM SODIUM 1,000 MG in SODIUM CHLORIDE 0.9% 50 ML IV SCH (20:31)
[2021-03-08] MEDS ORDERED: SULFAMETHOXAZOLE/TRIMETHOPRIM DS 800/160MG TAB PO SCH (21:00)
[2021-03-09 00:21] LABS: IgA Serum 183 mg/dL (47-310); Tis Trans IgA 1 U/mL
[2021-03-09] MEDS: LACTATED RINGER'S 1,000 ML IV SCH ×2 (01:57→18:53)
[2021-03-09 06:15] LABS: Hematocrit (blood only) 22.4 % (37-47); Hemoglobin 7.2 g/dL (12.0-16.0); Mean Corpuscular Hemoglobin 25.9 pg (25-34); Mean Corpuscular Hgb Conc 32.1 g/dL (32-36); Mean Corpuscular Volume 80.6 fL (80-100); Mean Platelet Volume 7.9 fL (7.4-10.4); Nucleated RBC # (auto) 0.04 K/uL (0-0); Nucleated RBC % (auto) 0.9 %; Platelet Count 435 K/uL (130-400); RDW Coefficient of Variation 17.4 % (11.5-14.5); RDW Standard Deviation 51.2 fL (36.4-46.3); Red Blood Count 2.78 M/uL (4.2-5.4)
[2021-03-09 06:40] LABS: Alanine Aminotransferase 91 U/L (12-78); Albumin Level 2.2 gm/dl (3.4-5.0); Alkaline Phosphatase 88 U/L (45-117); Aspartate Aminotransferase 97 U/L (15-37); BUN Creatinine Ratio 4.2 (10-20); Bilirubin Direct < 0.1 mg/dl (0-0.2); Bilirubin,Total 0.3 mg/dl (0.2-1); Blood Urea Nitrogen 3 mg/dl (7-18); Calcium 7.8 mg/dl (8.5-10.1); Carbon Dioxide 28 mmol/L (21-32); Chloride 106 mmol/L (98-107); Creatinine Clr Calc Pharmacy 108.1 ml/min; Est GFR (African American) 146.3 ml/min; Est GFR (Non-African American) 126.2 ml/min; Glucose 83 mg/dl (70-99); Potassium 3.8 mmol/L (3.5-5.1); Sodium 138 mmol/L (136-145); Total Protein 6.1 gm/dl (6.4-8.2)
[2021-03-09 06:43] LABS: Basophils # (auto) 0.02 K/uL (0-0.2); Basophils % (auto) 0.4 %; Eosinophils # (auto) 0.14 K/uL (0-0.5); Eosinophils % (auto) 2.9 %; Immature Granulocytes # (auto) 0.03 K/uL (0.00-0.02); Immature Granulocytes % (auto) 0.6 %; Lymphocytes # (auto) 2.59 K/uL (1.2-3.4); Monocytes # (auto) 0.56 K/uL (0.11-0.59); Monocytes % (auto) 11.7 %; Neutrophils # (auto) 1.46 K/uL (1.4-6.5); Neutrophils % (auto) 30.4 %; RBC Morphology Unremarkable
[2021-03-09] MEDS: PANTOprazole 40 MG TAB PO SCH ×2 (09:04→20:19)
[2021-03-09] MEDS: HEPARIN SOD 5,000 UNIT/0.5 ML VIAL SQ SCH ×2 (09:04→20:19)
--- NOTE | 2021-03-09 09:07 | Hospitalist Progress Note ---
Date of Service March 09, 2021 Assessment & Plan (1) Pyelonephritis: Plan: Recently treated with Macrobid as outpatient but PCP wanted to change abx, patient had been feeling better and declined. Records from [facility] reviewed on admission - Urinalysis was positive. Urine culture with no growth. CTA/P with cystitis and ascending urinary tract infection/pyelonephritis of the left kidney. Also, 13mm small abscess noted Temp 39.4C in ER procal 25.3 --> 3.67 Urology consulted -- abscess <2cm and no perc intervention required. recs for extended course abx Cycling fevers expected w abscess per Urology Last fever AM 03/06 38.9C Blood cultures NGTD Switched to Ertapenem after discussion with ID for now given reported worsening. -- repeat CT with unchanged size of abscess, possible other smaller abscess forming ID with recs for Bactrim, however prior cx Ecoli, pansensitive and patient without improvement on Rocephin and decision to continue Ertapenem for now. Additional dose tomorrow morning and then will d/c with oral agents for stop-gap but to follow up closer to home for continued treatment No further n/v. Feeling well. No fever. Plans for d/c tomorrow after abx and will need repeat imaging/further work-up to investigate cause and continued treatment (2) Anemia: Plan: hx of, worsening over past year with "unknown cause" however does have mainly poultry for diet, not much iron in veggies. Educated to increase intake On Vitron C CHAR FILTER TANK TENDER HEAD -- may need BID but will need good bowel regimen as well given chronic constipation ALSO TAKING 600MG IBUPROFEN 6X/DAILY FOR SEVERAL WEEKS PER PCP d/c toradol as ordered on admission --> episode of melena night 03/06, 2nd to constipation but she reports this is increased that her usual MCV low normal and checked iron stores --> IRON LOW AT 10, Trans % sat 2. B12/folate wnl Venofer x 3 Peripheral smear no evidence for sickle/other, notes iron deficiency but will need repeat once stores replenished Hgb electrophoresis pending GI CONSULTED given worsening iron deficiency over past several months, constipation, was started on Vitron C (working on bowels regimen) TSH checked last week outpt and normal 1.8) and ibuprofen use likely worsening anemia -> per GI, no emergent inpatient scope Protonix BID to continue at d/c celiac panel, h pylori stool antigen ordered Carafate added 03/07 -- ill causing n/v. Stopped. Feeling better Eating/drinking Will continue PPI at d/c Heme-onc consulted --felt iron supplementation causing most of her issues, give IV venofer (got 3rd dose 300mg last evening) Can follow up outpatient (again, insurance issues) Hgb 7.2 however has been on continuous IVF, suspect dilutional and holding off on transfusion No sob/cp reported. D/c IVF now that taking diet Repeat iron added by heme-onc with ferritin 293, iron 293, TIBC 325. No sob/cp reported. 98% on RA. Continue to monitor. Vit D level low 7.7 --> 50,000 IU weekly (3) Constipation: Plan: BM 3 days ago, nothing since Dulcolax tonight Imaging with persistent constipation, likely worsened prior to admission given iron supplementation. (4) Abscess of left kidney: Plan: Small at 1.[address] evening 03/07 with unchanged size, but possible additional abscess Ceftriaxone as above --> remains on Ertapenem as above and continuing through tomorrow prior to d/c ID consulted -- see report. (5) Avascular necrosis of bones of both hips: Plan: noted on most recent CT given AA female, concerns for SS -- Peripheral smear earlier on stay without evidence of sickling. LDH wnl, Retic count not elevated Hgb electrophoresis pending (did de-escalate from rocephin to cipro initially before switching to ertapenem for concerns if SS underlying could potentially worsen on that agent per UTD) however remainin on Ertapenem as above Hematology consulted this morning -- IVANNA and recs for Venofer replacement and outpt follow up Ortho consulted --> no pain. Pt to f/u with ortho in future if develops hip pain --> Now with b/l hip pain reported with standing/twisting. Messaged Dr Cruz. Awaiting response but should also f/u with ortho at d/c as well. Further concerning for an underlying SS (6) Hypokalemia: Plan: Low on admission -- secondary to decreased PO intake -- oral replacement ordered Mag wnl Resolved -- continue to monitor (7) DVT prophylaxis: Plan: Heparin 5000 units subcutaneously every 12 hours while inpatient Ambulate as tolerated Plan: Continue IV abx through today. 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 Feeling much better. No further fevers. Hungry today and ordered take-out -- currently eating canadian. No pain reported. No shortness of breath or chest pain. Mild headache but no further migraine. No nausea and no further emesis. Discussed plan for abx tomorrow and to return home for care. She does note a doctor was in to ask about her hips yesterday and they hadn't been hurting in the past but currently she is noticing increased pain in both hips when standing/twisting. Will alert ortho if in house, but if not able to eval today would also followup with orthopedics closer to home as well. Ice/rest, limit activity in the meantime. Questions/concerns addressed at this time. Getting number to call her PCP and keep informed of plan over the weekend and close f/u after d/c. Review of Systems Review of Systems: All systems reviewed & are unremarkable except as noted in HPI & below Physical Exam Constitutional: WD/WN, vitals as above cooperative and comfortable; no acute distress Eyes: PERRL, conjunctivae normal, anicteric sclerae ENMT: external ear and nose normal, oropharynx normal Neck: trachea midline Respiratory: normal respiratory effort, lungs clear to auscultation Cardiovascular: RRR, no murmur, no edema Gastrointestinal (Abdomen): normal bowel sounds, soft, nontender, no hepatosplenomegaly Musculoskeletal: no cyanosis or clubbing, extremities motor strength 5/5 pain reported with standing/pivoting at b/l hip. no obvious deformity, pulses palpable and equal strength Neurologic: PERRL, EOMI, accommodation nl, no face palsy, no dysarthria Psychiatric: A+Ox3, euthymic affect Orientation: alert and oriented x 3 Results & Data Results & Data ([facility]) Vital Signs (Past 12 Hours) Vital Signs Temp Pulse Resp BP Pulse Ox 03/09/21 07:24 36.6 C 76 14 100/62 99 03/08/21 22:19 37.0 C 78 14 105/67 99 Laboratory Results 03/09/21 03/09/21 03/08/21 Range/Units 05:55 05:55 18:30 WBC 4.80 (4.8-10.8) K/uL RBC 2.78 L (4.2-5.4) M/uL Hgb 7.2 L (12.0-16.0) g/dL Hct 22.4 L (37-47) % MCV 80.6 (80-100) fL MCH 25.9 (25-34) pg MCHC 32.1 (32-36) g/dL RDW Std Deviation 51.2 H (36.4-46.3) fL RDW Coeff of Zeus 17.4 H (11.5-14.5) % Plt Count 435 H (130-400) K/uL MPV 7.9 (7.4-10.4) fL Immature Gran % (Auto) 0.6 % Neut % (Auto) 30.4 % Lymph % (Auto) 54.0 % Bremer % (Auto) 11.7 % Eos % (Auto) 2.9 % Baso % (Auto) 0.4 % Neut # (Auto) 1.46 (1.4-6.5) K/uL Lymph # (Auto) 2.59 (1.2-3.4) K/uL Bremer # (Auto) 0.56 (0.11-0.59) K/uL Eos # (Auto) 0.14 (0-0.5) K/uL Baso # (Auto) 0.02 (0-0.2) K/uL Immature Gran # (Auto) 0.03 H (0.00-0.02) K/uL Absolute Nucleated RBC 0.04 H (0-0) K/uL Nucleated RBC % (auto) 0.9 % RBC Morphology Unremarkable Hemoglobin A Hemoglobin A2 Hemoglobin C Hemoglobin E Hemoglobin F () Hemoglobin S Variant Hemoglobin Hemoglobin Variant 2 Hgb ELP Interp Hemoglobinopathy Red Blood Count Hemoglobinopathy Hct Hemoglobinopathy Hgb Hemoglobinopathy MCV Hemoglobinopathy MCH Hemoglobinopathy RDW Sodium 138 (136-145) mmol/L Potassium 3.8 (3.5-5.1) mmol/L Chloride 106 (98-107) mmol/L Carbon Dioxide 28 (21-32) mmol/L Anion Gap 3.0 (3-11) BUN 3 L (7-18) mg/dl Creatinine 0.69 (0.6-1.2) mg/dl Est Cr Clr Drug Dosing 108.1 ml/min Est GFR ( Amer) 146.3 ml/min Est GFR (Non-Af Amer) 126.2 ml/min BUN/Creatinine Ratio 4.2 L (10-20) Glucose 83 (70-99) mg/dl Calcium 7.8 L (8.5-10.1) mg/dl Iron (35-150) mcg/dl TIBC (250-450) mcg/dl Ferritin (8-388) ng/ml Total Bilirubin 0.3 (0.2-1) mg/dl Direct Bilirubin < 0.1 (0-0.2) mg/dl AST 97 H (15-37) U/L ALT 91 H (12-78) U/L Alkaline Phosphatase 88 (45-117) U/L Lactate Dehydrogenase (84-246) U/L Total Creatine Kinase (26-192) U/L Total Protein 6.1 L (6.4-8.2) gm/dl Albumin 2.2 L (3.4-5.0) gm/dl 25-OH Vitamin D Total (20-100) ng/ml Procalcitonin (0-0.5) ng/ml PTH Intact (18.4-80.1) pg/ml Urine Color Yellow Urine Appearance Clear (Clear) Urine pH 8.5 H (4.5-7.5) Ur Specific [place] 1.006 (1.000-1.030) Urine Protein Negative (Negative) Urine Glucose (UA) Negative (Negative) Urine Ketones Negative (Negative) Urine Blood Negative (Negative) Urine Nitrite Negative (Negative) Urine Bilirubin Negative (Negative) Urine Urobilinogen Negative (Negative) Ur Leukocyte Esterase Negative (Negative) IgA (47-310) mg/dL Tiss Transglutamin IgA U/mL Celiac Disease Interp 03/08/21 03/08/21 03/08/21 Range/Units 15:38 10:25 08:30 WBC (4.8-10.8) K/uL RBC (4.2-5.4) M/uL Hgb (12.0-16.0) g/dL Hct (37-47) % MCV (80-100) fL MCH (25-34) pg MCHC (32-36) g/dL RDW Std Deviation (36.4-46.3) fL RDW Coeff of Zeus (11.5-14.5) % Plt Count (130-400) K/uL MPV (7.4-10.4) fL Immature Gran % (Auto) % Neut % (Auto) % Lymph % (Auto) % Bremer % (Auto) % Eos % (Auto) % Baso % (Auto) % Neut # (Auto) (1.4-6.5) K/uL Lymph # (Auto) (1.2-3.4) K/uL Bremer # (Auto) (0.11-0.59) K/uL Eos # (Auto) (0-0.5) K/uL Baso # (Auto) (0-0.2) K/uL Immature Gran # (Auto) (0.00-0.02) K/uL Absolute Nucleated RBC (0-0) K/uL Nucleated RBC % (auto) % RBC Morphology Hemoglobin A Pending Hemoglobin A2 Pending Hemoglobin C Pending Hemoglobin E Pending Hemoglobin F () Pending Hemoglobin S Pending Variant Hemoglobin Pending Hemoglobin Variant 2 Pending Hgb ELP Interp Pending Hemoglobinopathy Red Blood Count Pending Hemoglobinopathy Hct Pending Hemoglobinopathy Hgb Pending Hemoglobinopathy MCV Pending Hemoglobinopathy MCH Pending Hemoglobinopathy RDW Pending Sodium 140 (136-145) mmol/L Potassium 3.7 (3.5-5.1) mmol/L Chloride 106 (98-107) mmol/L Carbon Dioxide 28 (21-32) mmol/L Anion Gap 6.0 (3-11) BUN 4 L (7-18) mg/dl Creatinine 0.77 (0.6-1.2) mg/dl Est Cr Clr Drug Dosing 96.8 ml/min Est GFR ( Amer) 129.7 ml/min Est GFR (Non-Af Amer) 111.9 ml/min BUN/Creatinine Ratio 5.2 L (10-20) Glucose 87 (70-99) mg/dl Calcium 8.2 L (8.5-10.1) mg/dl Iron (35-150) mcg/dl TIBC (250-450) mcg/dl Ferritin (8-388) ng/ml Total Bilirubin (0.2-1) mg/dl Direct Bilirubin (0-0.2) mg/dl AST (15-37) U/L ALT (12-78) U/L Alkaline Phosphatase (45-117) U/L Lactate Dehydrogenase (84-246) U/L Total Creatine Kinase (26-192) U/L Total Protein (6.4-8.2) gm/dl Albumin (3.4-5.0) gm/dl 25-OH Vitamin D Total (20-100) ng/ml Procalcitonin (0-0.5) ng/ml PTH Intact 29.4 (18.4-80.1) pg/ml Urine Color Urine Appearance (Clear) Urine pH (4.5-7.5) Ur Specific [place] (1.000-1.030) Urine Protein (Negative) Urine Glucose (UA) (Negative) Urine Ketones (Negative) Urine Blood (Negative) Urine Nitrite (Negative) Urine Bilirubin (Negative) Urine Urobilinogen (Negative) Ur Leukocyte Esterase (Negative) IgA (47-310) mg/dL Tiss Transglutamin IgA U/mL Celiac Disease Interp 03/08/21 03/08/21 03/08/21 Range/Units 08:30 08:30 08:30 WBC (4.8-10.8) K/uL RBC (4.2-5.4) M/uL Hgb (12.0-16.0) g/dL Hct (37-47) % MCV (80-100) fL MCH (25-34) pg MCHC (32-36) g/dL RDW Std Deviation (36.4-46.3) fL RDW Coeff of Zeus (11.5-14.5) % Plt Count (130-400) K/uL MPV (7.4-10.4) fL Immature Gran % (Auto) % Neut % (Auto) % Lymph % (Auto) % Bremer % (Auto) % Eos % (Auto) % Baso % (Auto) % Neut # (Auto) (1.4-6.5) K/uL Lymph # (Auto) (1.2-3.4) K/uL Bremer # (Auto) (0.11-0.59) K/uL Eos # (Auto) (0-0.5) K/uL Baso # (Auto) (0-0.2) K/uL Immature Gran # (Auto) (0.00-0.02) K/uL Absolute Nucleated RBC (0-0) K/uL Nucleated RBC % (auto) % RBC Morphology Hemoglobin A Hemoglobin A2 Hemoglobin C Hemoglobin E Hemoglobin F () Hemoglobin S Variant Hemoglobin Hemoglobin Variant 2 Hgb ELP Interp Hemoglobinopathy Red Blood Count Hemoglobinopathy Hct Hemoglobinopathy Hgb Hemoglobinopathy MCV Hemoglobinopathy MCH Hemoglobinopathy RDW Sodium (136-145) mmol/L Potassium (3.5-5.1) mmol/L Chloride (98-107) mmol/L Carbon Dioxide (21-32) mmol/L Anion Gap (3-11) BUN (7-18) mg/dl Creatinine (0.6-1.2) mg/dl Est Cr Clr Drug Dosing ml/min Est GFR ( Amer) ml/min Est GFR (Non-Af Amer) ml/min BUN/Creatinine Ratio (10-20) Glucose (70-99) mg/dl Calcium (8.5-10.1) mg/dl Iron 293 H (35-150) mcg/dl TIBC 325 (250-450) mcg/dl Ferritin 786.2 H (8-388) ng/ml Total Bilirubin (0.2-1) mg/dl Direct Bilirubin (0-0.2) mg/dl AST (15-37) U/L ALT (12-78) U/L Alkaline Phosphatase (45-117) U/L Lactate Dehydrogenase 162 (84-246) U/L Total Creatine Kinase (26-192) U/L Total Protein (6.4-8.2) gm/dl Albumin (3.4-5.0) gm/dl 25-OH Vitamin D Total 7.7 L (20-100) ng/ml Procalcitonin (0-0.5) ng/ml PTH Intact (18.4-80.1) pg/ml Urine Color Urine Appearance (Clear) Urine pH (4.5-7.5) Ur Specific [place] (1.000-1.030) Urine Protein (Negative) Urine Glucose (UA) (Negative) Urine Ketones (Negative) Urine Blood (Negative) Urine Nitrite (Negative) Urine Bilirubin (Negative) Urine Urobilinogen (Negative) Ur Leukocyte Esterase (Negative) IgA (47-310) mg/dL Tiss Transglutamin IgA U/mL Celiac Disease Interp 03/08/21 03/08/2121 Range/Units 08:30 08:30 10:45 WBC (4.8-10.8) K/uL RBC (4.2-5.4) M/uL Hgb (12.0-16.0) g/dL Hct (37-47) % MCV (80-100) fL MCH (25-34) pg MCHC (32-36) g/dL RDW Std Deviation (36.4-46.3) fL RDW Coeff of Zeus (11.5-14.5) % Plt Count (130-400) K/uL MPV (7.4-10.4) fL Immature Gran % (Auto) % Neut % (Auto) % Lymph % (Auto) % Bremer % (Auto) % Eos % (Auto) % Baso % (Auto) % Neut # (Auto) (1.4-6.5) K/uL Lymph # (Auto) (1.2-3.4) K/uL Bremer # (Auto) (0.11-0.59) K/uL Eos # (Auto) (0-0.5) K/uL Baso # (Auto) (0-0.2) K/uL Immature Gran # (Auto) (0.00-0.02) K/uL Absolute Nucleated RBC (0-0) K/uL Nucleated RBC % (auto) % RBC Morphology Hemoglobin A Hemoglobin A2 Hemoglobin C Hemoglobin E Hemoglobin F () Hemoglobin S Variant Hemoglobin Hemoglobin Variant 2 Hgb ELP Interp Hemoglobinopathy Red Blood Count Hemoglobinopathy Hct Hemoglobinopathy Hgb Hemoglobinopathy MCV Hemoglobinopathy MCH Hemoglobinopathy RDW Sodium (136-145) mmol/L Potassium (3.5-5.1) mmol/L Chloride (98-107) mmol/L Carbon Dioxide (21-32) mmol/L Anion Gap (3-11) BUN (7-18) mg/dl Creatinine (0.6-1.2) mg/dl Est Cr Clr Drug Dosing ml/min Est GFR ( Amer) ml/min Est GFR (Non-Af Amer) ml/min BUN/Creatinine Ratio (10-20) Glucose (70-99) mg/dl Calcium (8.5-10.1) mg/dl Iron (35-150) mcg/dl TIBC (250-450) mcg/dl Ferritin (8-388) ng/ml Total Bilirubin 0.2 (0.2-1) mg/dl Direct Bilirubin < 0.1 (0-0.2) mg/dl AST 97 H (15-37) U/L ALT 91 H (12-78) U/L Alkaline Phosphatase 95 (45-117) U/L Lactate Dehydrogenase (84-246) U/L Total Creatine Kinase 16 L (26-192) U/L Total Protein 6.2 L (6.4-8.2) gm/dl Albumin 2.2 L (3.4-5.0) gm/dl 25-OH Vitamin D Total (20-100) ng/ml Procalcitonin 3.67 H (0-0.5) ng/ml PTH Intact (18.4-80.1) pg/ml Urine Color Urine Appearance (Clear) Urine pH (4.5-7.5) Ur Specific [place] (1.000-1.030) Urine Protein (Negative) Urine Glucose (UA) (Negative) Urine Ketones (Negative) Urine Blood (Negative) Urine Nitrite (Negative) Urine Bilirubin (Negative) Urine Urobilinogen (Negative) Ur Leukocyte Esterase (Negative) IgA 183 (47-310) mg/dL Tiss Transglutamin IgA 1 U/mL Celiac Disease Interp SEE NOTE PG Care Time/CCT Total # of Minutes Spent Total Time Spent with Patient: Total time spent is greater than 50% in coordination of care (as documented) at patient's floor/unit and/or counseling patient: Coding Level of Care Code 25993 Subseq Hosp Care Lvl 2 Diagnoses Pyelonephritis N12 Anemia D64.9 Constipation K59.00 Abscess of left kidney N15.1 Avascular necrosis of bones of both hips M87.051; M87.052 Hypokalemia E87.6 DVT prophylaxis Z29.9
[2021-03-09 12:08] LABS: Hemoglobin 8.1 g/dL (12.0-16.0); Mean Corpuscular Hemoglobin 25.1 pg (25-34); Mean Corpuscular Hgb Conc 31.2 g/dL (32-36); Mean Corpuscular Volume 80.5 fL (80-100); Mean Platelet Volume 7.8 fL (7.4-10.4); Platelet Count 495 K/uL (130-400); RDW Coefficient of Variation 17.2 % (11.5-14.5); RDW Standard Deviation 50.6 fL (36.4-46.3); Red Blood Count 3.23 M/uL (4.2-5.4)
[2021-03-09] MEDS: ERTAPENEM SODIUM 1,000 MG in SODIUM CHLORIDE 0.9% 50 ML IV SCH (19:17)
[2021-03-09] MEDS: PATIENT'S OWN ORAL CONTRACEPTIVE PO SCH (20:18)
[2021-03-09] MEDS: bisacodyL 5 MG TABEC PO SCH (20:19)
[2021-03-10 07:39] LABS: Hematocrit (blood only) 24.7 % (37-47); Hemoglobin 7.7 g/dL (12.0-16.0); Mean Corpuscular Hemoglobin 25.7 pg (25-34); Mean Corpuscular Hgb Conc 31.2 g/dL (32-36); Mean Corpuscular Volume 82.3 fL (80-100); Mean Platelet Volume 8.1 fL (7.4-10.4); Platelet Count 559 K/uL (130-400); RDW Coefficient of Variation 17.3 % (11.5-14.5); RDW Standard Deviation 51.7 fL (36.4-46.3); White Blood Count 4.45 K/uL (4.8-10.8)
[2021-03-10 08:12] LABS: BUN Creatinine Ratio 5.3 (10-20); Blood Urea Nitrogen 3 mg/dl (7-18); Calcium 8.3 mg/dl (8.5-10.1); Carbon Dioxide 26 mmol/L (21-32); Chloride 108 mmol/L (98-107); Creatinine Clr Calc Pharmacy 124.3 ml/min; Est GFR (African American) > 150.0 ml/min; Est GFR (Non-African American) 132.1 ml/min; Glucose 81 mg/dl (70-99); Sodium 140 mmol/L (136-145)
--- NOTE | 2021-03-10 08:31 | Discharge Summary ---
Date of Service March 10, 2021 Admission HPI Per Admitting Provider Attending: Dr. Venturamilton Stahl Is a 20-year-old female with no significant past medical history other than occasional urinary tract infection. She is on oral control and no other prescription medications. 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 She reports that recently she had a urinary tract infection was treated with Macrobid. Records were reviewed from [facility] and show a positive urinalysis but no positive cultures. By report, the patient states that her physician called and wanted to change her antibiotics. The patient was feeling better and stated that she did not think it was necessary. She moved in and over the last 24 hours began to have increasing fever and some left-sided pain. She presented to the emergency department at [facility]. CT scan of the abdomen pelvis was completed and shows cystitis and ascending urinary tract infection polynephritis of the left kidney. Is noted there is a 13 mm indeterminate cortical hypodensity with surrounding edema in the anterior interpolar left kidney which may be criteria for simple cyst. It could also be a small abscess. There is also a small amount of free fluid in the cul-de-sac which is nonspecific. T-max in the emergency department 39.4 C. This came down nicely with Tylenol. At the time of my examination the patient has no further nausea or vomiting. She has no diarrhea. She has minimal pain on the left side. She does have positive CVA tenderness. The patient denies any other past medical history is significant. She did have bunion surgery on her left foot without complication in the past. She is on oral control. She has no other surgical history. She has no reported pregnancies. She has no other acute complaints. The patient has not had Covid. She reports being fully vaccinated with both vaccinations of Moderna. She denies any illicit use of alcohol or other substances. Admission Exam Per Admitting Provider GENERAL : No acute distress EYES: No icterus, gaze conjugate NOSE: No evidence of epistaxis MOUTH: No lesions or candidiasis NECK: Supple LUNGS: CTA B/L, no wheezes, rales or rhonchi BACK: Positive for left-sided CVA tenderness HEART: Regular, rate controlled ABDOMEN: Soft, NT, ND, BS Present EXTREMITIES: No LE edema, pedal pulses intact NEURO: A&OX3 Principal Diagnosis Pyelonephritis with Abscess Discharge Exam Constitutional WD/WN, vitals as above cooperative and comfortable; no acute distress Eyes PERRL, conjunctivae normal, anicteric sclerae ENMT external ear and nose normal, oropharynx normal Neck trachea midline Respiratory normal respiratory effort, lungs clear to auscultation Cardiovascular RRR, no murmur, no edema Gastrointestinal (Abdomen) normal bowel sounds, soft, nontender, no hepatosplenomegaly Musculoskeletal no cyanosis or clubbing, extremities motor strength 5/5 pain reported with standing/pivoting at b/l hip. no obvious deformity, pulses palpable and equal strength Skin warm, dry Neurologic PERRL, EOMI, accommodation nl, no face palsy, no dysarthria Psychiatric Orientation: alert and oriented x 3 Genitourinary NO weiss NO CVA tenderness Lymphatic no cervical or axillary lymphadenopathy Discharge Data Allergies Allergy/AdvReac Type Severity Reaction Status Date / Time No Known Allergies Allergy Verified 03/04/21 10:13 Consultations 03/04/21 10:00 ED Decision to Admit Stat 03/05/21 08:02 Consult Urology Routine 03/06/21 14:29 Consult Gastroenterology Routine 03/07/21 14:36 Consult Hematology Routine 03/07/21 23:47 Consult Orthopedic Surgery Routine 03/08/21 11:27 Consult Infectious Diseases Routine 03/08/21 18:36 Consult Health Information Management Routine 03/09/21 14:58 Burn CD for patient Routine Ordered Studies 03/04/21 08:25 CT abd pelvis IV con only Stat 03/07/21 16:03 CT abd pelvis IV con only Urgent Hospital Course (1) Pyelonephritis: Recently treated with Macrobid as outpatient but PCP wanted to change abx, patient had been feeling better and declined. Records from [facility] reviewed on admission - Urinalysis was positive. Urine culture with no growth. CTA/P with cystitis and ascending urinary tract infection/pyelonephritis of the left kidney. Also, 13mm small abscess noted. Temp 39.4C in ER procal 25.3 --> 3.67 Urology consulted -- abscess <2cm and no perc intervention required. recs for extended course abx Cycling fevers expected w abscess per Urology --> no further fevers since 03/06 with temp of 38.9C Was having continued fevers on Ceftriaxone (previous culture reviewed with e. coli, pansensitive and had been on macrobid) and ID recs for Bactrim/Cipro, however given repeat CT with unchanged abscess and possible smaller abscess forming, switched to Ertapenem and continued while inpatient. Urine culture NEGATIVE. BCx NGTD FINAL Remained stable, afebrile, appetite, no further CVA tenderness --> given dose prior to d/c and was given Rx for PO Bactrim BID to continue at home (possibly stop-gap until decision to continue IV) Mother picking up (insurance issues no local coverage or follow up) and to travel back to [place], start Bactrim tomorrow and follow up with PCP Dr. Schwartz Prior . Will need repeat CT outpatient to ensure resolution, timing TBD based on symptoms/PCP follow up Given imaging burn on CD as well as chart copy for follow up closer to home. (2) Anemia: hx of, worsening over past year with "unknown cause" however does have mainly poultry for diet, not much iron in veggies. Educated to increase intake On Vitron C [employer] -- may need BID but would need good bowel regimen as well given chronic constipation ALSO ADMITTED TAKING 600MG IBUPROFEN 6X/DAILY FOR SEVERAL WEEKS PER PCP d/c toradol as ordered on admission --> episode of melena night 03/06, 2nd to constipation but she reports this is increased that her usual MCV low normal and checked iron stores --> IRON LOW AT 10, Trans % sat 2. B12/folate wnl Venofer x 3 DOSES 300MG WHILE INPATIENT Peripheral smear no evidence for sickle/other, notes iron deficiency but will need repeat once stores replenished -- RESOLVED Hgb electrophoresis pending AT TIME OF DISCHARGE GI CONSULTED given worsening iron deficiency over past several months, constipation, was started on Vitron C (working on bowels regimen) TSH checked last week outpt and normal 1.8) and ibuprofen use likely worsening anemia/possible PUD/gastritis No emergent scope given abscess and rec outpt f/u PPI BID and continued at d/c. Not able to tolerate carafate. H pylori, celiac panel without evidence of abnormality hgb 9.1 on admission, but had remained on continuous IVF until day prior d/c with Hgb 7.2 (no sob/cp reported). IVF stopped hgb 8.1--7.7. also with multiple lab draws. Follow up with GI closer to home. Instructed to avoid NSAIDs. Continued PPI BID x 3 months (rec in to see GI sooner) Heme-onc consulted --felt iron supplementation causing most of her issues, give IV venofer Can follow up outpatient closer to home Vit D level low 7.7 --> 50,000 IU weekly and given rx to continue weekly at d/c. F/u PCP (3) Constipation: Continued issues, Imaging with persistent constipation, likely worsened prior to admission given iron supplementation. Did have BM x 1 during admission. Instructed to continue bowel regimen once home to prevent worsening constipation/abd pain. Constipation may have played role in retention prior to abscess formation? (4) Abscess of left kidney: 1.[address] evening 03/07 with unchanged size, but possible additional abscess Ceftriaxone as above --> remains on Ertapenem as above and continuing through day of discharge and given Rx for Bactrim BID at recs by ID -- see above (5) Avascular necrosis of bones of both hips: noted on most recent CT given AA female, concerns for SS -- Peripheral smear earlier on stay without evidence of sickling. LDH wnl, Retic count not elevated Hgb electrophoresis pending (did de-escalate from rocephin to cipro initially before switching to ertapenem for concerns if SS underlying could potentially worsen on that agent per UTD) however remainin on Ertapenem as above Hematology consulted this morning -- IVANNA and recs for Venofer replacement and outpt follow up Ortho consulted --> no pain. Pt to f/u with ortho in future if develops hip pain --> Now with b/l hip pain reported with standing/twisting. non - severe but did discuss if worsens/severe she should get MRI at home pending further work-up Further concerning for an underlying SS (although should have been tested as baby, believed to have been done by mother) (6) Hypokalemia: Low on admission -- secondary to decreased PO intake -- oral replacement ordered Mag wnl Resolved -- continue to monitor (7) DVT prophylaxis: Heparin 5000 units subcutaneously every 12 hours while inpatient Ambulate as tolerated Discharged home with Bactrim, Protonix, Vit D, imaging on disc and copy of chart. 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 During your stay at [facility], we have made an effort to correct the problem that brought you to the hospital while keeping you as comfortable as possible. Medications were used to bring your condition under control and your discharge instructions will include directions for any medications you should take after leaving the hospital. Please make sure you see your Primary Care Provider as part of your follow up plan. Activity: As commented below Activity Comment: no strenuous activity /heavy exercise Non-emergency contact: Primary Care Provider and Specialist Call non-emergency contact if: you have any medication questions, your pain is not controlled, your pain is worsening and you have a fever Follow-up/Referrals: [facility] [Primary Care Provider] - Diet: Regular Addtl Attending Provider Instructions: You have been hospitalized for concerns of a urinary tract infection. You were treated with IV antibiotics and were initially switched to oral antibiotics, and infectious disease consult was had. Discussion was had, and due to the unchanged size in abscess on repeat imaging and concerns for second area of concern, you were continued on IV while in the hospital and have been given prescription for bactrim to take 1 tablet twice daily. This should be continued until either IV continued by PCP or duration determined based on repeat imaging and size/assessment of resolution. You are also instructed to avoid further ibuprofen use at this time, as you may have an underlying ulcer. GI was consulted and no inpatient EGD for evaluation given current illness with abscess, and you have been treated conservatively in the meantime with protonix 40mg by mouth twice daily which will be continued. You also had a vitamin D level checked which was VERY low and should take 1 50,000 IU tablet once weekly for a month and have your PCP check repeat labs to see about continued supplementation. You were found to have severe iron deficiency anemia, worsening likely by the ibuprofen use. YOu were given IV iron supplementation at discharge and should continue your daily supplementation. Hematology was consulted and you have hemoglobin electrophoresis pending at discharge to evaluated for possible underlying sickle cell anemia, however peripheral blood smear did not show any evidence of sickling. You were seen by orthopedics for avascular necrosis of the hips, likely worsening by ibuprofen use, but also further concerning for sickle cell. You should avoid strenuous activity and if hip pain severe, it would be recommended to obtain MRI of your hip.' Give local issues with insurance coverage and follow up, and need for repeat CT scan to ensure resolution of abscess, you are being encouraged to have close follow up at home so that you have access to the follow up/care that you need. You should continue to use Tylenol as needed for pain, but limit use to 3000 mg in a 24 hour period of time. You should continue a bowel regimen with senna/colace to help with bowel movements as constipation can cause worsening abdominal pain. Please follow up with PCP in the next 1-2 days. Supervising phsycian is calling your PCP today to give them an update and you have a copy of imaging and chart to bring with you for follow up. Please return to the nearest emergency department with any fevers, increased pain, shortness of breath, hip pain, or for any other symptoms that are concerning for you. It has been a pleasure being a part of the medical team providing for you while you have been in the hospital. Take care! Pending Studies at Discharge: Yes Studies:: Hemoglobin electrophoresis Stand-Alone Forms: My [facility], Work/School Release Medications and DC Order Prescriptions: New sennosides-docusate sodium [Senokot-S] 8.6-50 mg Tablet 1 tab PO QAM Qty: 30 RF: 0 pantoprazole 40 mg Tablet,Delayed Release (Dr/Ec) 40 mg PO BID 30 Days Qty: 60 RF: 1 ergocalciferol (vitamin D2) 1,250 mcg (50,000 unit) Capsule 50,000 unit PO Q7D@0900 Qty: 4 RF: 0 sulfamethoxazole-trimethoprim [Bactrim DS] 800-160 mg tablet 1 tab PO BID 21 Days Qty: 42 RF: 0 Continued acetaminophen [Tylenol Extra Strength] 500 mg Tablet 1,000 mg PO Q8H PRN (Reason: FEVER/PAIN) RF: 0 drospirenone-ethinyl estradiol [KP (28)] 3-0.02 mg Tablet 1 tab PO PM RF: 0 Vitron-C 65 mg iron- 125 mg Tablet,Delayed Release (Dr/Ec) 1 tab PO PM RF: 0 Discontinued ibuprofen [Motrin IB] 200 mg Tablet 600 mg PO Q6H PRN (Reason: fever/pain) RF: 0 Discharge Orders: Discharge Order (Routine); Ordered 03/10/21 Ordered By: Elham Damian Admission Data Admit Date/Time: 03/05/21 11:03 Attending Provider: Freeman Espinoza Admit Provider: Gonzalo Stahl Primary Care Provider: [facility] Other Providers: Gonzalo Stahl ; Freddie Berry ; Renard Shoemaker ; Aniket Almonte V. ; Je Cruz ; Leonides Owens ; Joycelyn Grande ; Son Galindo I. ; Matt Amaya II ; Obdulia Perez ; Jaspal Parker Other Interventions: Discharge Summary Assessment (RN) Last Done: 03/10/21 13:09 Coding Level of Care Code D/C DAY MANAGEMENT >30 MINS Diagnoses Pyelonephritis N12 Anemia D64.9 Constipation K59.00 Abscess of left kidney N15.1 Avascular necrosis of bones of both hips M87.051; M87.052 Hypokalemia E87.6 DVT prophylaxis Z29.9
[2021-03-10] MEDS ORDERED: MAGNESIUM HYDROXIDE SUSP 30 ML UDC PO ONE (08:45)
[2021-03-10] MEDS: PANTOprazole 40 MG TAB PO SCH (08:49)
[2021-03-10] MEDS: HEPARIN SOD 5,000 UNIT/0.5 ML VIAL SQ SCH (08:49)
[2021-03-10] MEDS: ERTAPENEM SODIUM 1,000 MG in SODIUM CHLORIDE 0.9% 50 ML IV SCH (12:24)
[2021-03-12 19:27] LABS: HCT 26.3 % (35.0-45.0); HGB 8.1 g/dL (11.7-15.5); Hemoglobin E DNR %; Hemoglobin Variant 1 DNR; Hemoglobin Variant 2 DNR; MCV 84.6 fL (80.0-100.0); RBC 3.11 Mill/uL (3.80-5.10); RDW 18.9 % (11.0-15.0)
[2021-03-12 21:35] LABS: Alpha-Tocopherol 11.6 mg/L (5.7-19.9); Vitamin E Beta-Gam Tocopherol <1.0 mg/L (<=4.3)
== END 2021-03-10 14:21 | disposition home or self-care (01) | DRG 690 ==
LOC: 3N 05:45 → ED 05:45 → SUATTDRO 10:46 → 3N 11:53
DX: N30.90 Cystitis, unspecified without hematuria; M87.851 Other osteonecrosis, right femur; M87.852 Other osteonecrosis, left femur; N10 Acute pyelonephritis; T39.395A Adverse effect of other nonsteroidal anti-inflammatory drugs [NSAID], initial encounter; K92.1 Melena; D50.9 Iron deficiency anemia, unspecified; Z79.3 Long term (current) use of hormonal contraceptives; N15.1 Renal and perinephric abscess; Z51.81 Encounter for therapeutic drug level monitoring; Z87.440 Personal history of urinary (tract) infections; K59.09 Other constipation; E87.6 Hypokalemia